=== PATIENT | female | born 1995 | race Two or more races ===

== ENCOUNTER 2016-10-22 13:38 | Emergency (ER) | payer OTHER ==
--- NOTE | 2016-10-22 14:01 | ED ---
Abdominal Pain/Female - HPI Summary HPI Summary: Patient presents to the ED 10 days post- with LLQ pain which radiates intermittently to the RUQ and briefly in the epigastric area since last evening. She notes to MOORE, decreased appetite, feeling weak, mild back pain. Denies urinary symptoms, constipation, vomiting or abnormal vaginal discharge. She endorses vaginal bleeding which but no clots or abnormal odor. VS stable. She denies sweats, chills or fever. She notes to fatigue and weakness, this is all new since 10 days ago. She takes vitamins, denies allergies or health problems. She is . Last BM this morning and does not feel that she is constipated. Denies diarrhea. and vaginal delivery was uncomplicated. VS: 98.5 temp; 114/74; 97; 16. She denies sick contacts or travel. She has taken ibuprofen without relief. She denies pain at this moment or any abnormal PO intake. - History of Current Complaint Chief Complaint: EDSyncope Stated Complaint: NEAR SYNCOPE Time Seen by Provider: 10/22/16 13:47 Hx Obtained From: Patient ?: No Onset/Duration: Sudden Onset Timing: Intermittent Episode Lasting Severity Initially: Moderate Severity Currently: Moderate Pain Intensity: 10 Pain Scale Used: 0-10 Numeric Location: Discrete At: LLQ Radiates: No Character: Sharp, Cramping Aggravating Factor(s): Nothing Alleviating Factor(s): Nothing Associated Signs and Symptoms: Positive: Other: - MOORE - Risk Factors Ectopic Risk Factor: Negative Ovarian Torsion Risk Factor: Negative Allergies/Adverse Reactions: Allergies Allergy/AdvReac Type Severity Reaction Status Date / Time No Known Allergies Allergy Verified 10/22/16 13:55 PMH/Surg Hx/FS Hx/Imm Hx Previously Healthy: Yes Sensory History: Denies: Hx Contacts or Glasses Opthamlomology History: Denies: Hx Contacts or Glasses Neurological History: Denies: Other Neuro Impairments/Disorders Psychiatric History: Reports: Hx Anxiety - Immunization History Hx Pertussis Vaccination: No Immunizations Up to Date: Unable to Obtain/Confirm Infectious Disease History: No Infectious Disease History: Denies: Traveled Outside the [place] in Last 30 Days - Social History Occupation: Unemployed Lives: With Family Alcohol Use: None Hx Substance Use: No Substance Use Type: Reports: None Hx Tobacco Use: No Smoking Status (MU): Never Smoked Tobacco Review of Systems Constitutional: Negative Eyes: Negative Positive: Palpitations Respiratory: Negative Positive: Abdominal Pain, Nausea Genitourinary: Negative Positive: no symptoms reported, see HPI, other Musculoskeletal: Negative Neurological: Negative All Other Systems Reviewed And Are Negative: Yes Physical Exam Vital Signs On Initial Exam: Initial Vitals Temp Pulse Resp BP Pulse Ox 98.5 F 97 16 114/74 99 10/22/16 13:40 10/22/16 13:40 10/22/16 13:40 10/22/16 13:40 10/22/16 13:40 - Steph Coma Scale Coma Scale Total: 15 Diagnostics - Vital Signs Vital Signs Temp Pulse Resp BP Pulse Ox 10/22/16 13:40 98.5 F 97 16 114/74 99 - Laboratory Result Diagrams: 10/22/16 14:05 10/22/16 14:05 Lab Statement: Any lab studies that have been ordered have been reviewed, and results considered in the medical decision making process. Abdominal Pain Fem Course/Dx - Course Course Of Treatment: Patient sent to xray to assess for possible constipation. Xray negative for any findings. WBC eldavated at 13.8 and UA shows 3+ leuks and WBC. Discussed case with Dr. Moore who suggested CT scan of the abd/ pelvis. CT pelvis only to show hepatosplenomegaly. Bactrim given for UTI and discharged home. She is OK with plan to follow up this week if symptoms worsen or to return to the ED. - Diagnoses Differential Diagnosis: Positive: Constipation, Ovarian Cyst, Renal Colic Provider Diagnoses: Abdominal pain Discharge - Discharge Plan Condition: Stable Disposition: HOME Prescriptions: Ondansetron ODT TAB* [Zofran 4 MG Odt TAB*] 4 mg PO Q6H PRN #12 tab.odt MDD 4 PRN Reason: Nausea Sulfamethox/Trimethoprim DS* [Bactrim DS 800/160 TAB*] 1 tab PO BID #10 tab Patient Education Materials: Abdominal Pain (ED) Referrals: No Primary Care Phys,NOPCP [Primary Care Provider] - Additional Instructions: Follow up with OBGYN Follow up with your primary care physician I have given you prescriptions for zofran (anti-nausea) and bactrim (take twice daily for 5 days) FINISH THE ENTIRE COURSE OF ANTIBIOTICS, EVEN IF YOU BEGIN TO FEEL BETTER!
[2016-10-22] MEDS ORDERED: Ondansetron INJ* 2 MG/ML VIAL IV ONE (14:02)
[2016-10-22] MEDS ORDERED: NS 0.9% 1000 ML* 1,000 ML IV ONE (14:03)
[2016-10-22 14:12] LABS: Hematocrit 34 % (35-47); Hemoglobin 11.1 g/dl (12.0-16.0); Mean Corpuscular HGB Conc 33 g/dl (31-36); Mean Corpuscular Hemoglobin 27 pg (27-31); Mean Corpuscular Volume 82 fL (80-97); Mean Platelet Volume 9 um3 (7.4-10.4); Red Blood Count 4.12 10^6/ul (4.0-5.4); Red Cell Distribution Width 14 % (10.5-15); White Blood Count 13.8 10^3/ul (3.5-10.8)
[2016-10-22 14:32] LABS: ALT 13 U/L (7-52); AST 9 U/L (13-39); Albumin 3.6 g/dL (3.2-5.2); Alkaline Phosphatase 94 U/L (34-104); Anion Gap 11 mmol/L (2-11); BUN/Creatinine Ratio 9.9 (8-20); Blood Urea Nitrogen 7 mg/dL (6-24); CO2 Carbon Dioxide 20 mmol/L (22-32); Calcium 9.4 mg/dL (8.6-10.3); Chloride 106 mmol/L (101-111); Creatine Kinase 43 U/L (10-223); EGFR African American 133.6 (>60); EGFR Non-African American 103.9 (>60); Globulin 3.6 g/dL (2-4); Glucose 93 mg/dL (70-100); Lipase < 10 U/L (11.0-82.0); Magnesium 1.7 mg/dL (1.9-2.7); Potassium 3.6 mmol/L (3.5-5.0); Sodium 137 mmol/L (133-145); Total Protein 7.2 g/dL (6.4-8.9)
[2016-10-22] MEDS ORDERED: Morphine INJ* 2 MG/ML 1 ML SYRINGE IV ONE (14:43)
--- NOTE | 2016-10-22 14:47 | RAD ---
INDICATION: Left lower quadrant pain COMPARISON: None TECHNIQUE: Erect and supine views of the abdomen are submitted. FINDINGS: Bones: There are no acute bony findings. Soft tissues: The soft tissues appear normal. The psoas margins are sharp. Bowel gas pattern: Normal Calcifications: There are no abnormal calcifications. Other: None IMPRESSION: NO ACUTE DIAGNOSTIC FINDINGS.
[2016-10-22 15:12] VITALS: BP 103/55
[2016-10-22 15:32] LABS: Urine Bacteria Absent (Absent); Urine Bilirubin Negative (Negative); Urine Glucose Negative (Negative); Urine Nitrite Negative (Negative)
[2016-10-22] MEDS ORDERED: Iohexol 300* (CONTRAST) 10 ML SDV IV ONE (15:52)
--- NOTE | 2016-10-22 16:25 | RAD ---
CLINICAL HISTORY: Abdominal pain, one week COMPARISON: None TECHNIQUE: Multiple contiguous axial CT scans were obtained of the abdomen and pelvis after the administration of intravenous contrast. Coronal and sagittal multiplanar reformations are submitted for review. Oral contrast was administered. Delayed images were obtained through the abdomen and pelvis. FINDINGS: LUNG BASES: The lung bases are clear. LIVER: The liver is homogeneously enlarged measuring up to 23 cm in long axis. BILE DUCTS: There is no intrahepatic or extrahepatic biliary dilatation. GALLBLADDER: The gallbladder is normal, without pericholecystic inflammatory change. PANCREAS: The pancreas is normal, without mass or ductal dilatation. SPLEEN: The spleen is homogeneously enlarged measuring approximately 15 cm in dimension. UPPER GI TRACT: Evaluation of the gastrointestinal tract is limited by incomplete gastric distention. The upper GI tract is unremarkable. SMALL BOWEL AND MESENTERY: The small bowel is normal in contour, course, and caliber. There is no obstruction or dilatation. COLON: The colon is normal in contour, course, caliber. There is no pericolonic inflammatory change. There is a tubular, vermiform, hollow viscus that is blind ending, and originates from the cecum, consistent with a normal appendix. There is no periappendiceal inflammatory change. ADRENALS: Normal bilaterally. KIDNEYS: The kidneys are normal in shape, size, contour, and axis. There is no hydronephrosis or nephrolithiasis. BLADDER: The bladder is smooth in contour. PELVIC ORGANS: The uterus is diffusely enlarged and heterogeneously enhancing consistent with the recent state. AORTA: The aorta is normal. IVC: Unremarkable LYMPH NODES: There is no lymphadenopathy by size criteria. ABDOMINAL WALL: There is no evidence for abdominal wall hernia. BONES AND SOFT TISSUES: Unremarkable OTHER: None IMPRESSION: HEPATOSPLENOMEGALY. APPEARANCE TO THE UTERUS.
[2016-10-22] MEDS ORDERED: Ibuprofen TAB* 600 MG PO ONE (16:51)
[2016-10-22] MEDS ORDERED: Ibuprofen TAB* 600 MG ONE (16:52)
== END 2016-10-22 17:04 | disposition home or self-care (01) ==
LOC: ED 13:38
DX: R10.32 Left lower quadrant pain (principal); R11.0 Nausea; R00.2 Palpitations
CPT/HCPCS: 36415; 74020; 74177; 80053; 81003; 81015; 82550; 83605; 83690; 83735; 84702; 85025; 86140; 87077; 87086; 87186; 99283; A9270-GY; J2270; J2405; Q9967

== ENCOUNTER → 2017-01-11 12:38 | Emergency (ER) | payer OTHER ==
[2017-01-11 12:43] VITALS: BP 132/80
--- NOTE | 2017-01-11 15:34 | ED ---
Annie Bird Gabriel, scribed for Baltazar Moore MD on 01/11/17 at 1256 . Psychiatric Complaint - HPI Summary HPI Summary: This patient is a 21 year old F presenting to [facility] accompanied by family with a chief complaint of depression since she gave . She states she has been on antidepressants since two weeks after giving . Patient reports loss of sleep. Patient denies SI or UT. - History Of Current Complaint Chief Complaint: EDMentalHealth Time Seen by Provider: 01/11/17 12:52 Hx Obtained From: Patient Onset/Duration: Still Present Character: Depressed Alleviating Factor(s): Nothing Associated Signs And Symptoms: Positive: Negative - SI and HI - Allergies/Home Medications Allergies/Adverse Reactions: Allergies Allergy/AdvReac Type Severity Reaction Status Date / Time No Known Allergies Allergy Verified 10/22/16 13:55 Home Medications: Home Medications Citalopram TAB* [CeleXA TAB*] 20 mg PO DAILY 01/11/17 [History Confirmed ] PMH/Surg Hx/FS Hx/Imm Hx Previously Healthy: No Endocrine/Hematology History: Denies: Hx Diabetes Cardiovascular History: Denies: Hx Hypertension History: Denies: Hx Renal Disease Sensory History: Denies: Hx Contacts or Glasses Opthamlomology History: Denies: Hx Contacts or Glasses Neurological History: Denies: Other Neuro Impairments/Disorders Psychiatric History: Reports: Hx Anxiety Infectious Disease History: No Infectious Disease History: Denies: Traveled Outside the [place] in Last 30 Days - Family History Known Family History: Positive: Hypertension, Diabetes, Other - cancer - Social History Alcohol Use: None Hx Substance Use: No Substance Use Type: Reports: None Hx Tobacco Use: No Smoking Status (MU): Never Smoked Tobacco Review of Systems Neurological: Negative - SI and HI Positive: Depressed All Other Systems Reviewed And Are Negative: Yes Physical Exam - Summary Physical Exam Summary: Appearance: Well-appearing Eyes: Normal, Conjunctiva clear ENT: Normal ENT inspection. Dental: Normal Neck: Supple, non-tender, no lymphadenopathy Lungs: Lungs clear, normal breath sounds, no respiratory distress, no accessory muscle use. Heart: RRR, no murmur, pulses normal. Abdomen: Nontender, soft. Musculoskeletal: Normal Neurological: Normal Psychiatric: Normal Skin: Normal Triage Information Reviewed: Yes Vital Signs On Initial Exam: Initial Vitals Temp Pulse Resp BP Pulse Ox 97.9 F 93 20 132/80 98 01/11/17 12:40 01/11/17 12:40 01/11/17 12:40 01/11/17 12:40 01/11/17 12:40 Vital Signs Reviewed: Yes Diagnostics - Vital Signs Vital Signs Temp Pulse Resp BP Pulse Ox 01/11/17 12:40 97.9 F 93 20 132/80 98 - Laboratory Lab Statement: Any lab studies that have been ordered have been reviewed, and results considered in the medical decision making process. Course/Dx - Course Course Of Treatment: Ms. Farmer presented C/O depression since she gave several months ago. She is not suicidal but overwhelmed by the circumstances of her life. She was seen by the [facility] who felt that she was safe for D/C and provided both mental health F/U and advocacy center contacts. - Differential Dx/Clinical Impression Provider Diagnosis: Post depression Discharge - Discharge Plan Condition: Stable Disposition: HOME Referrals: No Primary Care Phys,NOPCP [Primary Care Provider] - The documentation as recorded by the Annie demarco Gabriel accurately reflects the service I personally performed and the decisions made by me, Baltazar Moore MD.
== END | disposition home or self-care (01) ==
LOC: ED 12:38
DX: O90.9 Complication of the puerperium, unspecified (principal)
CPT/HCPCS: 99283

== ENCOUNTER 2017-04-27 12:11 | Emergency (ER) | payer OTHER ==
[2017-04-27 12:33] VITALS: BP 118/67
--- NOTE | 2017-04-27 12:47 | UC ---
HPI Febrile Illness - HPI Summary HPI Summary: Pt presents with sinus pain/pressure/congestion for 5 days. Recently has developed a dry cough. She has been taking an OTC cold/flu medication with no relief. Has felt feverish, but has not taken her temperature. Denies chills, sore throat, SOB, chest pain, abdominal pain. - History of Current Complaint Hx Obtained From: Patient Hx Last Menstrual Period: IUD Initial Severity: Moderate Current Severity: Moderate Pain Intensity: 6 Pain Scale Used: 0-10 Numeric <Lucho Smith - Last Filed: 04/27/17 12:59> <Silvia Kent - Last Filed: 04/29/17 18:51> - History of Current Complaint Chief Complaint: UCRespiratory Time Seen by Provider: 04/27/17 12:47 - Allergy/Home Medications Allergies/Adverse Reactions: Allergies Allergy/AdvReac Type Severity Reaction Status Date / Time No Known Allergies Allergy Verified 10/22/16 13:55 Home Medications: Home Medications D-Methorphan/PE/Acetaminophen [Daytime Cold Multi-Symp Gelcap] 04/27/17 [ History] PMH/Surg Hx/FS Hx/Imm Hx Previously Healthy: Yes - Surgical History Surgical History: None - Family History Known Family History: Positive: Hypertension, Diabetes, Other - cancer - Social History Occupation: Employed Full-time Lives: With Family Alcohol Use: None Substance Use Type: None Smoking Status (MU): Never Smoked Tobacco <Lucho Smith - Last Filed: 04/27/17 12:59> Review of Systems Constitutional: Fever Skin: Negative Eyes: Negative ENT: Nasal Discharge, Sinus Congestion, Sinus Pain/Tenderness Respiratory: Cough Cardiovascular: Negative Gastrointestinal: Negative Musculoskeletal: Negative Neurological: Negative Psychological: Negative All Other Systems Reviewed And Are Negative: Yes <Lucho Smith - Last Filed: 04/27/17 12:59> Physical Exam - Summary Physical Exam Summary: GENERAL: NAD. WDWN HEENT: NC/AT. Conjunctiva clear without inflammation or discharge. TMs intact , no bulging, erythema, or edema. Nasal mucosa mildly swollen and erythematous with yellow/clear discharge. No polyps noted. TTP maxillary and frontal sinus. Posterior oropharynx without exudates, erythema, or tonsillar enlargement. Uvula midline. NECK: Supple without lymphadenopathy CHEST: CTAB. No r/r/w. No accessory muscle use. Breathing comfortably and in no distress. CV: RRR. Without m/r/g. Pulses intact. SKIN: No rash or erythema noted. NEURO: Alert. CN II-XII grossly intact. PSYCH: Age appropriate behavior. Triage Information Reviewed: Yes Vital Signs: Initial Vital Signs Temp 97.3 F 04/27/17 12:28 Pulse 90 04/27/17 12:28 Resp 18 04/27/17 12:28 BP 118/67 04/27/17 12:28 Pulse Ox 100 04/27/17 12:28 <Lucho Smith - Last Filed: 04/27/17 12:59> Vital Signs: Initial Vital Signs Temp 97.3 F 04/27/17 12:28 Pulse 90 04/27/17 12:28 Resp 18 04/27/17 12:28 BP 118/67 04/27/17 12:28 Pulse Ox 100 04/27/17 12:28 <Silvia Kent - Last Filed: 04/29/17 18:51> Course/Dx - Course Course Of Treatment: Sinusitis. Pt is requesting antibiotic therapy after discussion that her symptoms could likely be viral. - Diagnoses Clinic Provider Diagnoses: Sinusitis <Lucho Smith - Last Filed: 04/27/17 12:59> Discharge <Lucho Smith - Last Filed: 04/27/17 12:59> <Silvia Kent - Last Filed: 04/29/17 18:51> - Discharge Plan Condition: Stable Disposition: HOME Prescriptions: Amoxicillin PO (*) [Amoxicillin 500 MG CAP*] 500 mg PO Q12H #14 cap Patient Education Materials: Sinusitis (ED) Forms: *Work Release Referrals: No Primary Care Phys,NOPCP [Primary Care Provider] - Additional Instructions: If you develop a fever, shortness of breath, chest pain, new or worsening symptoms - please call your PCP or go to the ED. Attestation Statement User Type: Provider - I was available for consult. This patient was seen by the KEVIN. The patient was not presented to, seen by, or examined by me. Antonia <Silvia Kent - Last Filed: 04/29/17 18:51>
== END 2017-04-27 13:05 | disposition home or self-care (01) ==
LOC: UCEAST 12:11
DX: J32.9 Chronic sinusitis, unspecified (principal)
CPT/HCPCS: 99212; G0463

== ENCOUNTER 2017-05-12 12:57 | Emergency (ER) | payer OTHER ==
[2017-05-12] MEDS ORDERED: Ondansetron ODT TAB* 4 MG PO ONE ×2 (13:35→14:57)
--- NOTE | 2017-05-12 13:42 | UC ---
UC General HPI - HPI Summary HPI Summary: 21 yo BF c/o N/V/D associated with crampy abd pain associated with f/c, vomited and had diarrhea about 5x since last night. Ate some crackers today but that about it . +sick contact- boyfriend was dx'd with gastroenteritis last night after going to ER. Denies URI sx, cough - History of Current Complaint Chief Complaint: UCGI Stated Complaint: NAUGSEA,VOMITING Time Seen by Provider: 05/12/17 12:58 Hx Obtained From: Patient Hx Last Menstrual Period: states no period - has IUD Onset/Duration: Sudden Onset Onset Severity: Moderate Current Severity: Moderate Pain Intensity: 0 - Allergy/Home Medications Allergies/Adverse Reactions: Allergies Allergy/AdvReac Type Severity Reaction Status Date / Time No Known Allergies Allergy Verified 10/22/16 13:55 Home Medications: Home Medications NK [No Home Medications Reported] 05/12/17 [History Confirmed 05/12/17] PMH/Surg Hx/FS Hx/Imm Hx - Additional Past Medical History Additional PMH: none Previously Healthy: Yes - Surgical History Surgical History: None - Family History Known Family History: Positive: Hypertension, Diabetes, Other - cancer - Social History Alcohol Use: None Substance Use Type: None Smoking Status (MU): Never Smoked Tobacco Review of Systems Constitutional: Fever, Chills Skin: Negative Eyes: Negative ENT: Negative Respiratory: Negative Cardiovascular: Negative Gastrointestinal: Abdominal Pain, Vomiting, Diarrhea, Nausea Genitourinary: Negative Motor: Negative Neurovascular: Negative Musculoskeletal: Negative Neurological: Negative Psychological: Negative All Other Systems Reviewed And Are Negative: Yes Physical Exam Triage Information Reviewed: Yes Vital Signs: Initial Vital Signs Temp 37.2 C 05/12/17 13:10 Pulse 108 05/12/17 13:10 Resp 20 05/12/17 13:10 BP 127/74 05/12/17 13:10 Pulse Ox 99 05/12/17 13:10 Eye Exam: Normal ENT Exam: Normal Dental Exam: Normal Neck exam: Normal Neck: Positive: 1 Respiratory Exam: Normal Cardiovascular Exam: Normal Abdomen Description: Positive: Soft, Other: - mild periumbilical tenderness Musculoskeletal Exam: Normal Neurological Exam: Normal Psychological Exam: Normal Skin Exam: Normal Course/Dx - Differential Dx - Multi-Symptom Provider Diagnoses: gastroenteritis Discharge - Discharge Plan Condition: Stable Disposition: HOME Patient Education Materials: Gastroenteritis (ED) Referrals: No Primary Care Phys,NOPCP [Primary Care Provider] -
[2017-05-12 15:53] VITALS: BP 108/56
== END 2017-05-12 15:45 | disposition home or self-care (01) ==
LOC: UCEAST 12:57
DX: K52.9 Noninfective gastroenteritis and colitis, unspecified (principal)
CPT/HCPCS: 87502; 87651; 99212; A9270-GY; G0463

== ENCOUNTER 2017-08-11 07:54 | Emergency (ER) | payer OTHER ==
[2017-08-11 08:06] VITALS: BP 111/71
--- NOTE | 2017-08-11 09:01 | UC ---
Iman Bird Tenzin, scribed for Silvia Kent MD on 08/11/17 at 0837 . Respiratory Complaint HPI - HPI Summary HPI Summary: Pt is a 21 years old female presenting to the complaining of sinus pressure and congestion with pain radiating to her head and ears since three days ago. Pt rates the pain at 5/10 in severity and describes it as aching, sharp and tight. She notes that her last sinus infection was couple of months ago. Pt is also complaining of fever, nausea and congested ear and nose. Pt denies rashes and chills. Pt reports sx improve with shower. No OTC meds taken.P She reports that she has not taken any medication for her pain. Pt has 10 month old at home - not . LNMP was 1 months ago. She does not smoke or drink. Pt's medications reviewed this visit - History of Current Complaint Chief Complaint: UCGeneralIllness Stated Complaint: RESP ISSUE NECK STIFF Hx Obtained From: Patient Hx Last Menstrual Period: iud Onset/Duration: Lasting Days - three days ago. Severity Currently: Mild Pain Intensity: 6 Pain Scale Used: 0-10 Numeric Associated Signs And Symptoms: Positive: Fever, Nasal Congestion. Negative: Chills - Allergies/Home Medications Allergies/Adverse Reactions: Allergies Allergy/AdvReac Type Severity Reaction Status Date / Time No Known Allergies Allergy Verified 08/11/17 08:06 PMH/Surg Hx/FS Hx/Imm Hx - Additional Past Medical History Additional PMH: NEGATIVE: NV, CVA. Previously Healthy: Yes - Surgical History Surgical History: None - Family History Known Family History: Positive: Hypertension, Diabetes, Other - cancer - Social History Occupation: Works From/At Home Lives: With Family Alcohol Use: None Substance Use Type: None Smoking Status (MU): Never Smoked Tobacco Review of Systems Constitutional: Fever Skin: Negative Eyes: Negative ENT: Sinus Congestion - congested ear and nose. Respiratory: Negative Cardiovascular: Negative Gastrointestinal: Nausea Genitourinary: Negative Motor: Negative Neurovascular: Negative Musculoskeletal: Negative Neurological: Headache - frontal Psychological: Negative All Other Systems Reviewed And Are Negative: Yes Physical Exam - Summary Physical Exam Summary: Vital Signs Reviewed: Yes A+Ox3, no distress, congested Eyes: Conjunctiva Clear, SANDRA ENT: Hearing grossly normal TM x2 clear mild fluid no erythema turbinates inflammed and boggy + thick PND uvula midline, no exudate + TTP max sinus and frontal L>R neck: supple no LA Respiratory: Positive: No respiratory distress, No accessory muscle use CtA throughout no w/r + BS throughotu Cardiovascular: skin color reflect adequate perfusion Musculoskeletal Exam: AMBRIZ x 4 without difficulty Neurological: Positive: Alert, ambulatory without difficulty Psychological: Positive: Normal Response To Family Skin: Positive: no rash, no ecchymosis Triage Information Reviewed: Yes Vital Signs: Initial Vital Signs Temp 98.4 F 08/11/17 08:03 Pulse 100 08/11/17 08:03 Resp 20 08/11/17 08:03 BP 111/71 08/11/17 08:03 Pulse Ox 99 08/11/17 08:03 Diagnostic Evaluation - Laboratory O2 Sat by Pulse Oximetry: 99 Respiratory Course/Dx - Course Course Of Treatment: progressive sinus congested, exam c/w sinusitis. pt non toxic with stable VSS. Will Rx flonase, decongestant, abx. secretion precaution. motrin/apap - Differential Dx/Diagnosis Provider Diagnoses: acute sinusitis Discharge - Sign-Out/Discharge Documenting (check all that apply): Discharge/Admit/Transfer - Discharge Plan Condition: Stable Disposition: HOME Prescriptions: Amoxicillin PO (*) [Amoxicillin 875 MG (*)] 875 mg PO BID #14 tab Fluticasone NASAL SPRAY 50MCG* [Flonase NASAL SPRAY 50MCG*] 2 spray BOTH NARES DAILY #1 btl Ibuprofen TAB* [Motrin TAB* 600 MG] 600 mg PO Q6H PRN #30 tab PRN Reason: fever, pain Patient Education Materials: Rhinosinusitis (ED) Referrals: [facility] [place] [facility] REFERRAL [Outside] No Primary Care Phys,NOPCP [Primary Care Provider] - Additional Instructions: - Stay well hydrated. Drink plenty of non-alcoholic, non-caffinated beverages. - Alternate ibuprofen (Advil, Motrin) 600mg and Tylenol every 3 hours for pain or fever. Take with food. Do NOT take for more than 4-5 days. - These infections are spread by secretions - do NOT share eating or drinking utensils - clean items you share with other people such as cell phones, computer mouse, TV remote, computer tablets,etc. Once you have been antibiotics for 2 days, change your toothbrush and your pillowcase. - get plenty of restful sleep - Take antibiotics as prescribed until gone if you are not improved after the next 48 hours - use nasal spray as prescribed - It is recommended you take a decongestant such as Zyrtec-D, Abby-D, Claritin-D - you can purchase this at the pharmacy counter without a prescription - If you develop increased pain, fever, rash, uncontrolled headache or other concerns it is recommended you go directly to the emergency department for further evaluation - Billing Disposition and Condition Condition: STABLE Disposition: Home The documentation as recorded by the Iman demarco Tenzin accurately reflects the service I personally performed and the decisions made by me, Silvia Kent MD.
== END 2017-08-11 09:15 | disposition home or self-care (01) ==
LOC: UCEAST 07:54
DX: J01.90 Acute sinusitis, unspecified (principal); R11.0 Nausea; R51 Headache
CPT/HCPCS: 99212; G0463

== ENCOUNTER 2017-09-17 08:00 | Emergency (ER) | payer SELFPAY ==
[2017-09-17 08:17] VITALS: BP 116/68
--- NOTE | 2017-09-17 08:25 | UC ---
Lower Extremity/Ankle HPI - HPI Summary HPI Summary: eDja Bird, scribed for attending Sherly Black MD. Pt is a 21 y/o F who presents to [facility] c/o R ankle pain and swelling. Pt reports that she was playing laser tag and while running she rolled the ankle and fell. Associated pain is moderate, ranked 7/10 on triage. Sx aggravated by ambulation, alleviated by nothing. Reports that she cannot bear full weight on the ankle and is able to walk a few steps, then needs to rest. Confirms she already has a boot from a prior injury. - History of Current Complaint Chief Complaint: UCLowerExtremity Stated Complaint: ANKLE INJURY Time Seen by Provider: 09/17/17 08:17 Hx Obtained From: Patient Hx Last Menstrual Period: on control Onset/Duration: Still Present Severity Currently: Moderate Pain Intensity: 7 Pain Scale Used: 0-10 Numeric Aggravating Factor(s): Ambulation Alleviating Factor(s): Nothing Able to Bear Weight: No - Cannot bear full weight - Allergies/Home Medications Allergies/Adverse Reactions: Allergies Allergy/AdvReac Type Severity Reaction Status Date / Time No Known Allergies Allergy Verified 09/17/17 08:17 PMH/Surg Hx/FS Hx/Imm Hx Respiratory History: Asthma Psychological History: Anxiety - Surgical History Surgical History: None - Family History Known Family History: Positive: Hypertension, Diabetes, Other - cancer - Social History Alcohol Use: None Substance Use Type: None Smoking Status (MU): Never Smoked Tobacco Review of Systems Constitutional: Negative Skin: Negative Eyes: Negative ENT: Negative Respiratory: Negative Cardiovascular: Negative Gastrointestinal: Negative Genitourinary: Negative Motor: Negative Neurovascular: Negative Musculoskeletal: Arthralgia - R ankle pain, Other: - R ankle swelling Neurological: Negative Psychological: Negative All Other Systems Reviewed And Are Negative: Yes Physical Exam - Summary Physical Exam Summary: Appearance: Well-appearing, Well-nourished Skin: Warm Eyes: Normal ENT: Normal Neck: Supple, nontender Respiratory: Clear to auscultation Cardiovascular: Regular rate, regular rhythm. Normal S1, S2. Musculoskeletal: Tenderness to palpation over the lateral and anterior sides of the right ankle joint without bony tenderness, NVI Neurological: Normal, A&Ox3 Psychiatric: Normal General: No acute distress Triage Information Reviewed: Yes Vital Signs: Initial Vital Signs Temp 98.6 F 09/17/17 08:12 Pulse 80 09/17/17 08:12 Resp 18 09/17/17 08:12 BP 116/68 09/17/17 08:12 Pulse Ox 100 09/17/17 08:12 Vital Signs Reviewed: Yes Diagnostics - Radiology Ankle XR Xray Interpretation: No Acute Changes - Normal articular alignment. No cortical disruption or suspicious trabecular irregularity to suggest fracture. No suggestion of talocrural joint effusion. Small os trigonum accessory ossicle. Mild nonfocal soft tissue swelling. Physician reviewed this radiology report. Radiology Interpretation Completed By: Radiologist Lower Extremity Course/Dx - Course Course Of Treatment: No fx on XR of right ankle, RICE, CAM boot for difficulty with ambulation - Differential Dx/Diagnosis Provider Diagnoses: Grade 3 right ankle sprain Discharge - Sign-Out/Discharge Documenting (check all that apply): Patient Departure - Discharge - Discharge Plan Condition: Stable Disposition: HOME Patient Education Materials: Ankle Sprain (ED) Referrals: No Primary Care Phys,NOPCP [Primary Care Provider] - - Billing Disposition and Condition Condition: STABLE Disposition: Home
--- NOTE | 2017-09-17 08:51 | RAD ---
Indication: RIGHT ankle pain following twisting/inversion injury. Comparison: No relevant prior exams available on the [facility] for comparison. Technique: AP, mortise, and lateral views RIGHT ankle. REPORT AND IMPRESSION: #. Normal articular alignment. No cortical disruption or suspicious trabecular irregularity to suggest fracture. No suggestion of talocrural joint effusion. Small os trigonum accessory ossicle. Mild nonfocal soft tissue swelling.
== END 2017-09-17 09:12 | disposition home or self-care (01) ==
LOC: UCEAST 08:00
DX: S93.401A Sprain of unspecified ligament of right ankle, initial encounter (principal); M25.571 Pain in right ankle and joints of right foot; J45.909 Unspecified asthma, uncomplicated; X50.1XXA Overexertion from prolonged static or awkward postures, initial encounter; Y93.89 Activity, other specified; Y92.9 Unspecified place or not applicable
CPT/HCPCS: 99211; G0463

== ENCOUNTER 2017-12-05 11:11 | Emergency (ER) | payer MEDICAID, OTHER ==
[2017-12-05 11:27] VITALS: BP 125/76
--- NOTE | 2017-12-05 11:46 | UC ---
Ear Complaint HPI - HPI Summary HPI Summary: 21 y/o female presents to the urgent care c/o left ear pain for the past 2 days. Pt reports her symptoms started w/ common cold about 1 week. she has nasal congestion w/ yellowish nasal discharge, MOORE, productive cough and sore throat. Ear pain is severe today 10/10 associated w/ mild dizziness and decrease hearing. She noticed some ear discharge and swelling this morning. Pt denies fever, tinnitus, SOB, wheezing, chest pain, abdominal pain, N/V/D/. she took Ibuprofen 600mg PO about 2 hrs ago to alleviate symptoms. - History of Current Complaint Chief Complaint: UCEar Stated Complaint: EAR ACHE Time Seen by Provider: 12/05/17 11:37 Hx Obtained From: Patient Hx Last Menstrual Period: on control ?: No Onset/Duration: Gradual Onset, Lasting Weeks - 1 week, Still Present, Worse Since - 2 days ago Severity Initially: Mild Severity Currently: Severe Pain Intensity: 10 - ear pain Pain Scale Used: 0-10 Numeric Aggravating Factors: Other - touch ear Alleviating Factors: OTC Meds - Ibuprofen 600mg PO Associated Signs/Symptoms: Positive: Hearing Loss, URI Symptoms - Allergies/Home Medications Allergies/Adverse Reactions: Allergies Allergy/AdvReac Type Severity Reaction Status Date / Time No Known Allergies Allergy Verified 12/05/17 11:27 PMH/Surg Hx/FS Hx/Imm Hx Previously Healthy: Yes Respiratory History: Asthma - Surgical History Surgical History: None - Family History Known Family History: Positive: Hypertension, Diabetes Family History: cancer - Social History Occupation: Unemployed Lives: With Family Alcohol Use: None Substance Use Type: None Smoking Status (MU): Never Smoked Tobacco - Immunization History Most Recent Tetanus Shot: UTD Review of Systems Constitutional: Negative Skin: Negative Eyes: Negative ENT: Sore Throat, Ear Ache - left ear pain, Nasal Discharge, Sinus Congestion, Sinus Pain/Tenderness, Other - mild dizziness at times Respiratory: Negative Cardiovascular: Negative Gastrointestinal: Negative Genitourinary: Negative Motor: Negative Neurovascular: Negative Musculoskeletal: Negative Neurological: Headache Psychological: Negative Is Patient Immunocompromised?: No All Other Systems Reviewed And Are Negative: Yes Physical Exam - Summary Physical Exam Summary: Vital signs: reviewed General: well developed, well nourished obese female sitting in the examining table w/o any apparent distress Skin: [place], warm and dry, no evidence of atopic dermatitis, psoriasis, seborrhea. HEENT: -Head: atraumatic, non tender; no scalp dermatitis. -Eyes: sclera and conjunctiva clear, PERRLA, EOMI -Ears: no pre- or postauricular lymphadenopathy or erythema; LF external ear canal with erythema and yellowish purulent discharge, pinna tenderness on palpation, LF TM injected w/ erythema, RT external ear canal clear and RT TM WNL. . -Nose/Face: erythematous and edematous nasal mucosa with clear rhinorrhea, no frontal or maxillary sinus tender to palpation. -Mouth/Throat: Mucous membrane moist, posterior pharynx left annie ew/ erythema and midl exudate and B/l tonsilar enlargement. Neck: supple, FROM, nontender, no lymphadenopathy, no meningismus. Chest: Clear to auscultation, normal breath sounds Abd: soft, Bowel sounds active, Nontender. Back: no spinal or CVAT Neuro: A&O x4, GCS 15, no focal neuro deficits, normal behavior for age. Triage Information Reviewed: Yes Vital Signs: Initial Vital Signs Temp 99.1 F 12/05/17 11:22 Pulse 85 12/05/17 11:22 Resp 20 12/05/17 11:22 BP 125/76 12/05/17 11:22 Pulse Ox 100 12/05/17 11:22 Ear Complaint Course/Dx - Course Course Of Treatment: 21 y/o female presents to the urgent care c/o left ear pain for the past 2 days. Pt reports her symptoms started w/ common cold about 1 week. she has nasal congestion w/ yellowish nasal discharge, MOORE, productive cough and sore throat. Ear pain is severe today 12/07 associated w/ mild dizziness and decrease hearing. She noticed some ear discharge and swelling this morning. Pt denies fever, tinnitus, SOB, wheezing, chest pain, abdominal pain, N/V/D/. she took Ibuprofen 600mg PO about 2 hrs ago to alleviate symptoms. Hx obtained. Pt w/ Left acute otitis Media and externa and preauricular and postauricular lymphadenopathy on examination. Pt. Pt Rx Amoxicillin PO and Ciprodex otic drops. Also Rx ibuprofen PO OTC for pain. Strongly advised If symptoms worsen and she develops fever adn severe otalgia despite antibiotics to go immediately to the ER for further management. or f/u w / ENT Dr Almaraz for further management. Pt understood and agreed with D/C instructions. - Differential Dx/Diagnosis Differential Diagnosis/HQI/PQRI: Cerumen Impaction, Otitis Externa, Otitis Media , Perforated TM, Pharyngitis, URI Provider Diagnoses: 1- Left acute otitis Media and externa. 2- otalgia Discharge - Sign-Out/Discharge Documenting (check all that apply): Patient Departure - D/c home All imaging exams completed and their final reports reviewed: No Studies - Discharge Plan Condition: Stable Disposition: HOME Prescriptions: Amoxicillin PO (*) [Amoxicillin 875 MG (*)] 875 mg PO BID #20 tab Ciproflox/Dexameth OTIC.SUSP* [Ciprodex OTIC.SUSP*] 4 drop .SEE ORDER BID #1 btl Ibuprofen TAB* [Motrin TAB* 800 MG] 800 mg PO Q6H PRN #30 tab PRN Reason: otalgia Patient Education Materials: Ear Infection (ED) Referrals: [facility] [[facility]] - 2 Days Albino Almaraz MD [Medical Doctor] - 3 Days Additional Instructions: 1- Please take the full course of the antibiotic to avoid resistance. 2-Please take ibuprofen PO q6-8hrs prn as instructed after meals to alleviate pain and swelling. Increase fluid intake, eat well, rest and avoid strenuous exercise 3-If symptoms do not improve or worsen please return to the urgent care or f/u with your PCP 2 days for further evaluation and treatment. 4- If severe ear pain and fever develops despite medications please go immediately to the ER or f/u w/ ENT Dr Almaraz for further evaluation and treatment. - Billing Disposition and Condition Condition: STABLE Disposition: Home
== END 2017-12-05 12:25 | disposition home or self-care (01) ==
LOC: UCEAST 11:11
DX: H66.92 Otitis media, unspecified, left ear (principal); H60.92 Unspecified otitis externa, left ear; J02.9 Acute pharyngitis, unspecified; R09.81 Nasal congestion; R42 Dizziness and giddiness; R51 Headache
CPT/HCPCS: 99212; G0463

== ENCOUNTER 2017-12-06 21:20 | Emergency (ER) | payer OTHER ==
[2017-12-06 21:28] VITALS: BP 142/81
--- NOTE | 2017-12-06 21:32 | UC ---
Ear Complaint HPI - HPI Summary HPI Summary: 21 yo female presents with worsening left ear pain now going into her jaw and neck. She tells me that she was seen yesterday and dx'd with otitis externa with strong advisement that if her symptoms worsened to go to the ED. She was rx 'd amoxicillin and ciprodex ear drops - which she took two doses yesterday and two doses today, but her symptoms have worsened. She says it is difficult to open her jaw due to pain. Has been taking ibuprofen, but is not helping. Denies fever, chills. - History of Current Complaint Chief Complaint: UCEar Stated Complaint: SORE THROAT, AND HEADACHE Time Seen by Provider: 12/06/17 21:32 Hx Obtained From: Patient Hx Last Menstrual Period: MIRENA IUD Onset/Duration: Gradual Onset Severity Initially: Severe Severity Currently: Severe Pain Intensity: 10 Pain Scale Used: 0-10 Numeric - Allergies/Home Medications Allergies/Adverse Reactions: Allergies Allergy/AdvReac Type Severity Reaction Status Date / Time No Known Allergies Allergy Verified 12/06/17 21:28 Home Medications: Home Medications Levonorgestrel (Iud) [Mirena IUD] 12/06/17 [History] PMH/Surg Hx/FS Hx/Imm Hx - Additional Past Medical History Additional PMH: None - Surgical History Surgical History: None - Family History Known Family History: Positive: Hypertension, Diabetes, Other - cancer Family History: cancer - Social History Occupation: Employed Full-time Lives: With Family Alcohol Use: None Substance Use Type: None Smoking Status (MU): Never Smoked Tobacco - Immunization History Most Recent Tetanus Shot: UTD Review of Systems Constitutional: Negative Skin: Negative Eyes: Negative ENT: Ear Ache Respiratory: Negative Cardiovascular: Negative Gastrointestinal: Negative Neurovascular: Negative Musculoskeletal: Negative Neurological: Headache Psychological: Negative All Other Systems Reviewed And Are Negative: Yes Physical Exam - Summary Physical Exam Summary: GENERAL: NAD. Mild pain distress. Tearful SKIN: No rashes, sores, lesions, or open wounds. HEENT: Head: AT/NC Eyes: EOM intact. Conjunctiva clear without inflammation or discharge. Ears: Hearing grossly normal. RIGHT TM: WNL. TM intact. LEFT ear: Moderate canal edema and white purulent matter. TM not visualized due to canal edema and degree of pain. 5-10mm post-auricular LAD TTP. Tenderness at mastoid process down left mandible and into left neck. No post auricular erythema or ecchymosis. Nose: Nasal mucosa pink and moist. NTTP maxillary and frontal sinus. Throat: Posterior oropharynx without exudates, erythema, or tonsillar enlargement. Uvula midline. NECK: Supple. TTP left neck. CHEST: CTAB. No r/r/w. No accessory muscle use. Breathing comfortably and in no distress. CV: RRR. Without m/r/g. Pulses intact. NEURO: Alert. PSYCH: Age appropriate behavior. Triage Information Reviewed: Yes Vital Signs: Initial Vital Signs Temp 98.3 F 12/06/17 21:25 Pulse 89 12/06/17 21:25 Resp 16 12/06/17 21:25 BP 142/81 12/06/17 21:25 Pulse Ox 100 12/06/17 21:25 Vital Signs Reviewed: Yes Ear Complaint Course/Dx - Course Course Of Treatment: Her pain appears out of proportion to her exam. She says she has had "Swimmer's ear" in the past with drainage, but has never had pain like this. I am concerned for an early mastoiditis. I discussed with the pt the option of placing her on an additional po anbx with a follow up tomorrow afternoon here at or to go to the ED tonight or tomorrow if pain persists. She elected to go to the ED this evening. - Differential Dx/Diagnosis Provider Diagnoses: Left otitis externa Discharge - Sign-Out/Discharge Documenting (check all that apply): Patient Departure All imaging exams completed and their final reports reviewed: No Studies - Discharge Plan Condition: Stable Disposition: HOME-RECOMMEND TO ED Referrals: No Primary Care Phys,NOPCP [Primary Care Provider] - Additional Instructions: Please go to the ER for your increasing pain and swelling despite antibiotics and outpatient therapy - Billing Disposition and Condition Condition: STABLE Disposition: Home-Recommend to ED
== END 2017-12-06 21:55 | disposition home health service (06) ==
LOC: UCEAST 21:20
DX: H60.92 Unspecified otitis externa, left ear (principal)
CPT/HCPCS: 99212; G0463

== ENCOUNTER 2017-12-06 22:10 | Emergency (ER) | payer OTHER ==
[2017-12-06 23:55] LABS: ABS Basophils 0 10^3/ul (0-0.2); ABS Eosinophils 0.2 10^3/ul (0-0.6); ABS Lymphocytes 2.7 10^3/ul (1.0-4.8); ABS Monocytes 0.6 10^3/ul (0-0.8); ABS Neutrophils 4.5 10^3/ul (1.5-7.7); ABS Nucleated RBC 0 10^3/ul; Eosinophil % 2.4 % (0-6); Hematocrit 38 % (35-47); Hemoglobin 12.9 g/dl (12.0-16.0); Lymphocyte % 33.6 % (25-47); Mean Corpuscular HGB Conc 34 g/dl (31-36); Mean Corpuscular Hemoglobin 28 pg (27-31); Mean Corpuscular Volume 84 fL (80-97); Mean Platelet Volume 9.2 um3 (7.4-10.4); Nucleated Red Blood Cells % 0.2; Platelet Count 221 10^3/ul (150-450); Red Blood Count 4.54 10^6/ul (4.00-5.40); Red Cell Distribution Width 14 % (10.5-15)
[2017-12-07 00:12] LABS: EGFR Non-African American 96.6 (>60)
[2017-12-07] MEDS ORDERED: Ketorolac INJ* 30 MG/ML 1 ML VIAL IV PUSH ONE (01:36)
--- NOTE | 2017-12-07 02:46 | ED ---
Throat Pain/Nasal Congestion - HPI Summary HPI Summary: 21-year-old female presents with left ear pain for the past couple days. She states she started antibiotic days ago and has taken 2 doses. She states that she has had any decreased hearing. States that she's been having increased pain over the posterior aspect ear that is new. She denies any history of ear infections. She admits to drainage of her ear. No fevers. No sinus congestion. she states the pain radiates to her jaw and it is difficulty to open her jaw due to the pain. No medical conditions. - History of Current Complaint Chief Complaint: EDEarPain Time Seen by Provider: 12/07/17 00:46 - Allergies/Home Medications Allergies/Adverse Reactions: Allergies Allergy/AdvReac Type Severity Reaction Status Date / Time No Known Allergies Allergy Verified 12/06/17 22:14 PMH/Surg Hx/FS Hx/Imm Hx Endocrine/Hematology History: Denies: Hx Diabetes Cardiovascular History: Denies: Hx Hypertension History: Denies: Hx Renal Disease Sensory History: Denies: Hx Contacts or Glasses Opthamlomology History: Denies: Hx Contacts or Glasses Neurological History: Denies: Other Neuro Impairments/Disorders Psychiatric History: Reports: Hx Anxiety Infectious Disease History: No Infectious Disease History: Denies: Traveled Outside the [place] in Last 30 Days - Family History Known Family History: Positive: Hypertension, Diabetes, Other - cancer Family History: cancer - Social History Alcohol Use: None Hx Substance Use: No Substance Use Type: Reports: None Hx Tobacco Use: No Smoking Status (MU): Never Smoked Tobacco Review of Systems Negative: Fever Positive: Ear Ache Negative: Chest Pain Negative: Shortness Of Breath All Other Systems Reviewed And Are Negative: Yes Physical Exam Triage Information Reviewed: Yes Vital Signs On Initial Exam: Initial Vitals Temp Pulse Resp BP Pulse Ox 98.0 F 84 15 128/77 99 12/06/17 22:11 12/06/17 22:11 12/06/17 22:11 12/06/17 22:11 12/06/17 22:11 Vital Signs Reviewed: Yes Appearance: Positive: Well-Appearing Skin: Positive: Warm, Dry Head/Face: Positive: Normal Head/Face Inspection Eyes: Positive: Normal, EOMI, SANDRA, Conjunctiva Clear ENT: Positive: Pharynx normal, Other - tenderness over tragus and mastoid left ear. edema and erythema and serous fluid in left ear. TM red Neck: Positive: Supple, Nontender, No Lymphadenopathy Respiratory/Lung Sounds: Positive: Clear to Auscultation, Breath Sounds Present Cardiovascular: Positive: Normal, RRR Musculoskeletal: Positive: Normal Neurological: Positive: Normal Psychiatric: Positive: Normal Diagnostics - Vital Signs Vital Signs Temp Pulse Resp BP Pulse Ox 12/07/17 00:03 98.2 F 86 18 131/79 100 12/06/17 22:11 98.0 F 84 15 128/77 99 - Laboratory Lab Results: Lab Results 12/06/17 12/06/17 Range/Units 23:46 23:46 WBC 8.0 (3.5-10.8) 10^3/ul RBC 4.54 (4.00-5.40) 10^6/ul Hgb 12.9 (12.0-16.0) g/dl Hct 38 (35-47) % MCV 84 (80-97) fL MCH 28 (27-31) pg MCHC 34 (31-36) g/dl RDW 14 (10.5-15) % Plt Count 221 (150-450) 10^3/ul MPV 9.2 (7.4-10.4) um3 Neut % (Auto) 56.6 (38-83) % Lymph % (Auto) 33.6 (25-47) % [place] % (Auto) 7.0 (0-7) % Eos % (Auto) 2.4 (0-6) % Baso % (Auto) 0.4 (0-2) % Absolute Neuts (auto) 4.5 (1.5-7.7) 10^3/ul Absolute Lymphs (auto) 2.7 (1.0-4.8) 10^3/ul Absolute Monos (auto) 0.6 (0-0.8) 10^3/ul Absolute Eos (auto) 0.2 (0-0.6) 10^3/ul Absolute Basos (auto) 0 (0-0.2) 10^3/ul Absolute Nucleated RBC 0 10^3/ul Nucleated RBC % 0.2 Sodium 138 (135-145) mmol/L Potassium 3.9 (3.5-5.0) mmol/L Chloride 105 (101-111) mmol/L Carbon Dioxide 26 (22-32) mmol/L Anion Gap 7 (2-11) mmol/L BUN 11 (6-24) mg/dL Creatinine 0.75 (0.51-0.95) mg/dL Est GFR ( Amer) 116.9 (>60) Est GFR (Non-Af Amer) 96.6 (>60) BUN/Creatinine Ratio 14.7 (8-20) Glucose 94 (70-100) mg/dL Calcium 9.5 (8.6-10.3) mg/dL Total Bilirubin 0.30 (0.2-1.0) mg/dL AST 11 L (13-39) U/L ALT 13 (7-52) U/L Alkaline Phosphatase 84 (34-104) U/L C-Reactive Protein 26.67 H (<8.01) mg/L Total Protein 7.5 (6.4-8.9) g/dL Albumin 4.3 (3.2-5.2) g/dL Globulin 3.2 (2-4) g/dL Albumin/Globulin Ratio 1.3 (1-3) Beta HCG, Quant < 0.60 mIU/mL Result Diagrams: 12/06/17 23:46 12/06/17 23:46 Lab Statement: Any lab studies that have been ordered have been reviewed, and results considered in the medical decision making process. EENT Course/Dx - Course Course Of Treatment: 21-year-old female presents with left ear pain for the past couple days. She states she started antibiotic days ago and has taken 2 doses. She states that she has had any decreased hearing. States that she's been having increased pain over the posterior aspect ear that is new. She denies any history of ear infections. She admits to drainage of her ear. No fevers. No sinus congestion. she states the pain radiates to her jaw and it is difficulty to open her jaw due to the pain. No medical conditions. on exam has tenderness over tragus and mastoid of left ear. left ear canal edematous and erythematous. labs wnl. got CT due to tenderness mastoid. placed wick in ear. CT shows serous otitis media. gave referral to ENT. will place on cipro and gave pain medication. patient understand and agrees with plan. - Differential Diagnoses Differential Diagnoses: Otitis Externa, Otitis Media, Sinusitis - Diagnoses Provider Diagnoses: Otitis externa, Otitis media Discharge - Sign-Out/Discharge Documenting (check all that apply): Patient Departure - Discharge Plan Condition: Good Disposition: HOME Prescriptions: Ciprofloxacin TAB* [Cipro 500 MG TAB*] 500 mg PO BID #13 tab oxyCODONE/Acetamin 5/325 MG* [Percocet 5/325 TAB*] 1 tab PO Q6H PRN #8 tab MDD 4 PRN Reason: Pain Patient Education Materials: Otitis Externa (ED) Referrals: No Primary Care Phys,NOPCP [Primary Care Provider] - Carlos Li MD [Medical Doctor] - Additional Instructions: add on ciprofloxacin twice a day for 7 days Take Tylenol or ibuprofen for pain every 6 hours, use percocet for break through pain every 6 hours if wick is still present after two days, return to urgent care or ED to have changed follow up with ENT Return to ED if develop any new or worsening symptoms - Billing Disposition and Condition Condition: GOOD Disposition: Home
[2017-12-07] MEDS ORDERED: Ciproflox/Dexameth OTIC.SUSP* 7.5 ML BTL LEFT EAR ONE (03:15)
[2017-12-07] MEDS ORDERED: oxyCODONE/Acetamin 5/325 MG* TAB PO ONE (03:17)
[2017-12-07] MEDS ORDERED: Ciprofloxacin TAB* 500 MG PO ONE (03:20)
--- NOTE | 2017-12-07 04:29 | RAD ---
EXAM: CT Orbits, Sella, Posterior Fossa or Auditory System Without Intravenous Contrast CLINICAL HISTORY: 21 years old, female; Pain; Jaw pain; Additional info: Left ear pain TECHNIQUE: Axial computed tomography images of the orbits, sella, posterior fossa or auditory system without intravenous contrast. All CT scans at this facility use at least one of these dose optimization techniques: automated exposure control; mA and/or kV adjustment per patient size (includes targeted exams where dose is matched to clinical indication); or iterative reconstruction. Coronal and sagittal reformatted images were created and reviewed. COMPARISON: BRAIN WO CT BRAIN WO 05/31/2013 1:00 PM FINDINGS: Sella: Unremarkable. Mastoid air cells: See below. Auditory system: Soft tissue swelling involving the mucosa of the left external auditory canal. No bony destruction is seen. The soft tissue swelling extends medially to abut the tympanic membrane. Fluid in his seen in the left middle air cavity surrounding the malleus, incus and stapes. Fluid is located in the hypotympanic base, mesotympanic space and slightly in the epitympanic space. Fluid is noted in the left mastoid sinus. The contralateral right external auditory canal is normal in appearance. The right middle ear cavity is normal in appearance as well as the mastoid sinus. Bones/joints: The appearance of the right and left temporomandibular joints are normal in appearance. Soft tissues: Prominent left intraparotid lymph nodes on the left side. IMPRESSION: 1. Thickening of the wall of the left external auditory canal. No associated bony destruction. This extends medially to involve the tympanic membrane in which there is fluid located in the middle ear cavity. This fluid involves the hypotympanic, mesotympanic and epitympanic spaces. No obvious disruption of the ossicles. Fluid is located in the left mastoid air cells. No bony destruction. The appearance of the nasopharynx is normal. This may represent an external otitis media with an associated sympathetic effusion in the middle ear cavity. Suggest culturing the external auditory canal. I do not have a history that the patient is a diabetic. The appearance of the fluid in the middle ear cavity is consistent with a serous otitis. However if the patient's pain persists I was just a followup CT exam to see if there is evidence of ossicular erosion. 2. The appearance of the temporomandibular joint on the left is normal. The pain in the jaw may be a referred pain. No evidence of destruction of the facial recess or of the geniculate ganglion. To contact [facility] with a general question: Operations Center - [phone] For direct physician to physician contact: Physician Hotline - [phone] [facility] ([facility] Facility ID #[id number])
[2017-12-07 05:01] VITALS: BP 108/76
== END 2017-12-07 04:50 | disposition home or self-care (01) ==
LOC: ED 22:10
DX: H60.90 Unspecified otitis externa, unspecified ear (principal); H66.92 Otitis media, unspecified, left ear; H92.02 Otalgia, left ear
CPT/HCPCS: 36415; 70480; 80053; 84702; 85025; 86140; 99283; A9270-GY; J1885

== ENCOUNTER 2018-02-12 12:35 | Emergency (ER) | payer OTHER ==
[2018-02-12] MEDS ORDERED: Ketorolac INJ* 60 MG/2 ML VIAL IM ONE (13:51)
--- NOTE | 2018-02-12 14:04 | ED ---
Breast Complaint - HPI Summary HPI Summary: Please presents with left-sided painful breast lump since yesterday. She is not typically do routine breast exams however when pain started she checked herself and noticed a bump in the 12:00 region. She also has some tenderness along her left rib cage. Denies fevers, chills, skin changes, swollen upper extremity, pain in her arm, injury to chest, nipple discharge, trauma. She is 15 months and has not breast-fed in the past 13 months. No issues with breast-feeding, duct issues, mastitis, etc. No known family history of breast, ovarian, uterine, colon cancer however mom reports there have been other cancer such as leukemia. She has had mirena in since 2 weeks after delivering baby - no period since. Abnormal pap before period - normal after. 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 She was also dx'd w/ post depression but has not addressed this w/ counseling nor medication. Reports she gets panic attacks as a result. Doesn't sleep well -has a lot on her mind. - History of Current Complaint Hx Obtained From: Patient, Family/Dry Mill Worker - mom - Allergy/Home Medications Allergies/Adverse Reactions: Allergies Allergy/AdvReac Type Severity Reaction Status Date / Time No Known Allergies Allergy Verified 12/06/17 22:14 PMH/Surg Hx/FS Hx/Imm Hx Previously Healthy: Yes Endocrine/Hematology History: Denies: Hx Anticoagulant Therapy, Hx Blood Disorders, Hx Diabetes, Hx Thyroid Disease, Hx Unexplained Bleeding, Autoimmune Disease Cardiovascular History: Denies: Hx Hypertension History: Denies: Hx Renal Disease Sensory History: Denies: Hx Contacts or Glasses Opthamlomology History: Denies: Hx Contacts or Glasses Neurological History: Denies: Other Neuro Impairments/Disorders Psychiatric History: Reports: Hx Anxiety - dx'd w/ post depression Infectious Disease History: No Infectious Disease History: Denies: Hx of Known/Suspected MRSA, Traveled Outside the [place] in Last 30 Days - Family History Known Family History: Positive: Hypertension, Diabetes, Other - cancer Family History: cancer (some are unknown but leukemia is one) - Social History 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 Lives: With Family Alcohol Use: None Hx Substance Use: No Substance Use Type: Reports: None Hx Tobacco Use: No Smoking Status (MU): Never Smoked Tobacco Review of Systems Constitutional: Negative Negative: Fever, Chills, Fatigue Cardiovascular: Negative Negative: Chest Pain Respiratory: Negative Negative: Shortness Of Breath Gastrointestinal: Negative Genitourinary: Negative Musculoskeletal: Negative Skin: Negative Negative: Rash Neurological: Negative Psychological: Normal All Other Systems Reviewed And Are Negative: Yes Physical Exam Triage Information Reviewed: Yes Vital Signs On Initial Exam: Initial Vitals Temp Pulse Resp BP Pulse Ox 98.0 F 96 19 124/81 98 02/12/18 12:43 02/12/18 12:43 02/12/18 12:43 02/12/18 12:43 02/12/18 12:43 Vital Signs Reviewed: Yes Appearance: Positive: Well-Appearing, Pain Distress - mild, Obese Skin: Positive: Warm, Skin Color Reflects Adequate Perfusion, Dry - no erythema , no ecchymosis, no induration, no peau de orange on breast exam, Other - breasts evaluated B/L; no changes in tissue w/ arms above head or on waist however Lt breast appears slightly larger then Rt upon observation; B/L breasts are dense w/ fibrocystic tissue - Rt breast w/o discrete masses or abnormal findings; Lt breast with fairly well defined mass about 5cm in size palpated at 12:00 in Lt breast - TTP - mobile - no overlying fever or skin changes, no nipple d/c; axillarym humerus and epitrochlear region w/o palpable LN's Head/Face: Positive: Normal Head/Face Inspection Eyes: Positive: Normal, EOMI ENT: Positive: Hearing grossly normal Neck: Positive: Supple, Nontender, No Lymphadenopathy, Other: - TTP along Lt midaxillary region - no discrete masses or LN's palpated however may be difficult given pt's body habitus Respiratory/Lung Sounds: Positive: Clear to Auscultation, Breath Sounds Present. Negative: Rales, Rhonchi, Wheezes Cardiovascular: Positive: Normal, RRR, S1, S2 Abdomen Description: Positive: Nontender, No Organomegaly, Soft Bowel Sounds: Positive: Present Musculoskeletal: Positive: Normal, Strength/ROM Intact Neurological: Positive: Normal, Sensory/Motor Intact, Alert, Oriented to Person Place, Time, CN Intact II-III Psychiatric: Positive: Normal - concerned but calm, polite, cooperative and pleasant Diagnostics - Vital Signs Vital Signs Temp Pulse Resp BP Pulse Ox 02/12/18 13:35 90 117/66 100 02/12/18 13:05 101 116/71 98 02/12/18 13:03 81 98 02/12/18 12:43 98.0 F 96 19 124/81 98 - Laboratory Result Diagrams: 02/12/18 13:55 02/12/18 13:55 Lab Statement: Any lab studies that have been ordered have been reviewed, and results considered in the medical decision making process. Breast Pain Course/Dx - Course Course Of Treatment: No clinical or lab signs of infection therefore will refrain from ordering U/S for abscess. She is advised to f/u with NUCLEAR EQUIPMENT SALES ENGINEER tomorrow as imaging may be ordered outpt. In the meantime, may try supportive care for pain. Also advised to remind provider she had IUD in place in the event this is causing/exacerbating sx. - Diagnoses Provider Diagnoses: Left breast mass Discharge - Sign-Out/Discharge Documenting (check all that apply): Patient Departure - Discharge Plan Condition: Stable Disposition: HOME Patient Education Materials: Breast Mass (ED) Forms: *Work Release Referrals: Ganesh Chairez DO [Primary Care Provider] - Ana Zelaya CNM [Certified Nurse Stamp Presser] - Additional Instructions: You appear to have a new onset of left breast mass. The origin of this mass is unknown at this time however it is important you follow up with your PCP or sub assembly team worker for further testing. This may include ultrasound, mammography and/ or biopsy. Call tomorrow to notify them of your symptoms and schedule an appointment. In the meantime, you may try warm compresses alternating with ice as well as NSAIDs such as naproxen 500mg every 12 hours with food or ibuprofen 600mg every 6 hours with food as needed for pain and swelling. *If in the meantime you develop fever, chills, arm swelling or pain, return to the emergency department. NOTE: You also mentioned you were diagnosed with depression and are struggling with anxiety. It is important that you follow-up with your provider as counseling and/or medication may be very beneficial in helping you through this time. Call tomorrow to schedule an appointment. If in the meantime you develop thoughts of harming herself or others, call 911 or return to the emergency department. - Billing Disposition and Condition Condition: STABLE Disposition: Home
[2018-02-12 14:07] LABS: ABS Basophils 0 10^3/ul (0-0.2); ABS Eosinophils 0.2 10^3/ul (0-0.6); ABS Lymphocytes 1.7 10^3/ul (1.0-4.8); ABS Monocytes 0.3 10^3/ul (0-0.8); ABS Neutrophils 2.7 10^3/ul (1.5-7.7); ABS Nucleated RBC 0 10^3/ul; Eosinophil % 3.2 %; Hematocrit 40 % (35-47); Hemoglobin 13.3 g/dl (12.0-16.0); Lymphocyte % 34.1 %; Mean Corpuscular HGB Conc 34 g/dl (31-36); Mean Corpuscular Hemoglobin 28 pg (27-31); Mean Corpuscular Volume 84 fL (80-97); Mean Platelet Volume 9.1 fL (7.4-10.4); Nucleated Red Blood Cells % 0; Platelet Count 234 10^3/ul (150-450); Red Blood Count 4.71 10^6/ul (4.00-5.40); Red Cell Distribution Width 14 % (10.5-15); White Blood Count 4.9 10^3/ul (3.5-10.8)
[2018-02-12 14:23] LABS: EGFR Non-African American 90.2 (>60)
[2018-02-12 16:12] VITALS: BP 100/65
== END 2018-02-12 15:15 | disposition home or self-care (01) ==
LOC: ED 12:35
DX: N63.0 Unspecified lump in unspecified breast (principal); Z97.5 Presence of (intrauterine) contraceptive device
CPT/HCPCS: 36415; 80053; 83605; 84702; 85025; 86140; 96372; 99283; J1885

== ENCOUNTER 2018-02-18 21:17 | Emergency (ER) | payer OTHER ==
[2018-02-18] MEDS ORDERED: Ondansetron INJ* 2 MG/ML VIAL IV ONE (21:48)
[2018-02-18] MEDS ORDERED: NS 0.9% 1000 ML* 1,000 ML IV ONE ×2 (21:48→23:30)
--- NOTE | 2018-02-18 21:53 | ED ---
GI/ HPI - HPI Summary HPI Summary: 22-year-old female presents with nausea vomiting diarrhea for the past 3 hours. She admits to epigastric pain. She denies any chest pain or shortness breath. No cough. No sore throat. No fevers. States boyfriend is starting to get sick with similar symptoms. States diarrhea is watery. No blood in her stool. Has had this before. denies any urinary symptoms. No abnormal vaginal discharge. She states she has had multiple episodes of nausea vomiting and diarrhea. no recent antibiotic usage. - History of Current Complaint Chief Complaint: EDNauseaVomitDiarrh Time Seen by Provider: 02/18/18 21:35 Stated Complaint: VOMITING/DIARRHEA, FEVER Hx Last Menstrual Period: MIRENA IUD Pain Intensity: 10 - Allergy/Home Medications Allergies/Adverse Reactions: Allergies Allergy/AdvReac Type Severity Reaction Status Date / Time No Known Allergies Allergy Verified 02/18/18 21:31 PMH/Surg Hx/FS Hx/Imm Hx Endocrine/Hematology History: Denies: Hx Anticoagulant Therapy, Hx Blood Disorders, Hx Diabetes, Hx Thyroid Disease, Hx Unexplained Bleeding Cardiovascular History: Denies: Hx Hypertension History: Denies: Hx Renal Disease Sensory History: Denies: Hx Contacts or Glasses Opthamlomology History: Denies: Hx Contacts or Glasses Neurological History: Denies: Other Neuro Impairments/Disorders Psychiatric History: Reports: Hx Anxiety - dx'd w/ post depression Infectious Disease History: No Infectious Disease History: Denies: Hx of Known/Suspected MRSA, Traveled Outside the [place] in Last 30 Days - Family History Known Family History: Positive: Hypertension, Diabetes, Other - cancer Family History: cancer (some are unknown but leukemia is one) - Social History Alcohol Use: None Hx Substance Use: No Substance Use Type: Reports: None Hx Tobacco Use: No Smoking Status (MU): Never Smoked Tobacco Review of Systems Negative: Fever Negative: Chest Pain Negative: Shortness Of Breath Positive: Abdominal Pain, Vomiting, Diarrhea, Nausea All Other Systems Reviewed And Are Negative: Yes Physical Exam Triage Information Reviewed: Yes Vital Signs On Initial Exam: Initial Vitals Temp Pulse Resp BP Pulse Ox 100.2 F 106 18 164/131 99 02/18/18 21:27 02/18/18 21:27 02/18/18 21:27 02/18/18 21:27 02/18/18 21:27 Vital Signs Reviewed: Yes Appearance: Positive: Well-Appearing Skin: Positive: Warm, Dry Head/Face: Positive: Normal Head/Face Inspection Eyes: Positive: Normal, Conjunctiva Clear ENT: Positive: Pharynx normal Respiratory/Lung Sounds: Positive: Clear to Auscultation, Breath Sounds Present Cardiovascular: Positive: Normal, RRR Abdomen Description: Positive: Nontender, Soft Bowel Sounds: Positive: Present Musculoskeletal: Positive: Normal Neurological: Positive: Normal Psychiatric: Positive: Normal Diagnostics - Vital Signs Vital Signs Temp Pulse Resp BP Pulse Ox 02/18/18 21:32 119/65 02/18/18 21:27 100.2 F 106 18 164/131 99 - Laboratory Result Diagrams: 02/18/18 22:13 02/18/18 22:13 Lab Statement: Any lab studies that have been ordered have been reviewed, and results considered in the medical decision making process. Re-Evaluation - Re-Evaluation First Eval Re-Evaluation Time: 22:42 Change: Improved Comment: nausea improved, has headache now Second Eval Re-Evaluation Time: 23:32 Change: Unchanged Comment: still nauseous Third Eval Re-Evaluation Time: 00:40 Change: Improved Comment: no longer nauseous, no abdominal pain, wants to go home GIGU Course/Dx - Course Course Of Treatment: 22-year-old female presents with nausea vomiting diarrhea for the past 3 hours. She admits to epigastric pain. She denies any chest pain or shortness breath. No cough. No sore throat. No fevers. States boyfriend is starting to get sick with similar symptoms. States diarrhea is watery. No blood in her stool. Has had this before. denies any urinary symptoms. No abnormal vaginal discharge. She states she has had multiple episodes of nausea vomiting and diarrhea. no recent antibiotic usage. On exam nontender abdomen. wbc normal. gave zofran and nausea improved. states has a headache so gave toradol and compazine. symptoms resolved. will send home with zofran. patient understand and agrees with plan. - Diagnoses Differential Diagnoses - Female: Gastroenteritis (Viral), Gastroenteritis ( Bacterial), Urinary Tract Infection Provider Diagnoses: Nausea vomiting and diarrhea, Abdominal pain Discharge - Sign-Out/Discharge Documenting (check all that apply): Patient Departure - Discharge Plan Condition: Good Disposition: HOME Prescriptions: Ondansetron TAB* [Zofran 4 MG Tab*] 4 mg PO Q6H PRN #12 tab PRN Reason: Nausea Patient Education Materials: Acute Nausea and Vomiting (ED) Referrals: Ganesh Chairez DO [Primary Care Provider] - Additional Instructions: Can take Zofran every 6 hours as needed for nausea Drink small amounts of fluid as tolerated When able to eat follow BRAT diet: Bananas, rice, applesauce, toast Take ibuprofen or Tylenol for pain as needed every 6 hours Follow up with primary within 5 days Return to ED if develop any new or worsening symptoms - Billing Disposition and Condition Condition: GOOD Disposition: Home
[2018-02-18 22:22] LABS: ABS Basophils 0 10^3/ul (0-0.2); ABS Eosinophils 0.1 10^3/ul (0-0.6); ABS Monocytes 0.5 10^3/ul (0-0.8); ABS Neutrophils 7.3 10^3/ul (1.5-7.7); ABS Nucleated RBC 0.1 10^3/ul; Eosinophil % 1.5 %; Hematocrit 40 % (35-47); Hemoglobin 13.5 g/dl (12.0-16.0); Lymphocyte % 10.9 %; Mean Corpuscular HGB Conc 34 g/dl (31-36); Mean Corpuscular Hemoglobin 29 pg (27-31); Mean Corpuscular Volume 84 fL (80-97); Mean Platelet Volume 9.3 fL (7.4-10.4); Nucleated Red Blood Cells % 0.7; Platelet Count 262 10^3/ul (150-450); Red Blood Count 4.74 10^6/ul (4.00-5.40); Red Cell Distribution Width 14 % (10.5-15)
[2018-02-18] MEDS ORDERED: Ketorolac INJ* 30 MG/ML 1 ML VIAL IV PUSH ONE (22:38)
[2018-02-18 22:45] LABS: ALT 14 U/L (7-52); Albumin 4.4 g/dL (3.2-5.2); Albumin/Globulin Ratio 1.2 (1-3); Alkaline Phosphatase 92 U/L (34-104); BUN/Creatinine Ratio 13.3 (8-20); Blood Urea Nitrogen 12 mg/dL (6-24); C Reactive Protein 52.28 mg/L (<8.01); CO2 Carbon Dioxide 23 mmol/L (22-32); Calcium 9.3 mg/dL (8.6-10.3); Chloride 105 mmol/L (101-111); EGFR Non-African American 77.6 (>60); Globulin 3.6 g/dL (2-4); Glucose 107 mg/dL (70-100); Sodium 138 mmol/L (135-145)
[2018-02-18 22:50] LABS: HCG Pregnancy < 0.60 mIU/mL
[2018-02-18 23:22] LABS: AST 15 U/L (13-39); Anion Gap 10 mmol/L (2-11); Potassium 4.3 mmol/L (3.5-5.0)
[2018-02-18] MEDS ORDERED: PROCHLORPERAZINE INJ 5 MG/ML 2 ML VIAL IV ONE (23:30)
[2018-02-19] MEDS ORDERED: O ndansetron ODT 4MG 5TAB PRPK 4 MG PAK PO ONE (00:38)
[2018-02-19 01:02] VITALS: BP 128/71
== END 2018-02-19 01:00 | disposition home or self-care (01) ==
LOC: ED 21:17
DX: R10.9 Unspecified abdominal pain (principal); R11.2 Nausea with vomiting, unspecified; R19.7 Diarrhea, unspecified; R50.9 Fever, unspecified
CPT/HCPCS: 36415; 80053; 83690; 84702; 85025; 86140; 96361; 96374; 96375; 99284; A9270-GY; J0780; J1885; J2405

== ENCOUNTER 2018-04-07 06:57 | Emergency (ER) | payer OTHER ==
--- NOTE | 2018-04-07 07:13 | ED ---
Influenza-Like Illness - HPI Summary HPI Summary: Patient is a 22-year-old female presenting with complaints of fever, chills, body aches, sore throat, and cough that began last evening. Patient took her temperature at home around 4:00 this morning and was 102. Took advil for relief. 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 Denies N/V/D, loss of appetite, or urinary symptoms. Denies hx of asthma or COPD. Denies diabetes or autoimmune disorders. Non-smoker. Symptoms are mild in severity. - History of Current Complaint Chief Complaint: EDFluSymptoms Time Seen by Provider: 04/07/18 07:13 Hx Obtained From: Patient Onset/Duration: Gradual Onset - began with body aches Severity: Moderate Associated Signs & Symptoms: Fever, Myalgia, Cough, Sore Throat, Nasal Congestion, Headache Related Hx: Possible Flu/Infectious Exposure - Daycare, Recent Antipyretics Dose And Time - Advil, 4:00 - Allergy/Home Medications Allergies/Adverse Reactions: Allergies Allergy/AdvReac Type Severity Reaction Status Date / Time No Known Allergies Allergy Verified 02/18/18 21:31 PMH/Surg Hx/FS Hx/Imm Hx Previously Healthy: Yes Endocrine/Hematology History: Denies: Hx Anticoagulant Therapy, Hx Blood Disorders, Hx Diabetes, Hx Thyroid Disease, Hx Unexplained Bleeding Cardiovascular History: Denies: Hx Hypertension Respiratory History: Denies: Hx Asthma, Hx Chronic Obstructive Pulmonary Disease (COPD) History: Denies: Hx Renal Disease Sensory History: Denies: Hx Contacts or Glasses Opthamlomology History: Denies: Hx Contacts or Glasses Neurological History: Denies: Other Neuro Impairments/Disorders Psychiatric History: Reports: Hx Anxiety - dx'd w/ post depression - Immunization History Date of Influenza Vaccine: 11/15 Infectious Disease History: No Infectious Disease History: Denies: Hx of Known/Suspected MRSA, Traveled Outside the [place] in Last 30 Days - Family History Known Family History: Positive: Hypertension, Diabetes, Other - cancer Family History: cancer (some are unknown but leukemia is one) - Social History Occupation: Employed Full-time Lives: With Family Alcohol Use: None Hx Substance Use: No Substance Use Type: Reports: None Hx Tobacco Use: No Smoking Status (MU): Never Smoked Tobacco Review of Systems Positive: Fever, Chills, Fatigue Eyes: Negative Positive: Sore Throat. Negative: Ear Ache Cardiovascular: Negative Positive: Cough Gastrointestinal: Negative Negative: Abdominal Pain, Vomiting, Diarrhea, Nausea Genitourinary: Negative Positive: Myalgia Skin: Negative Positive: Headache Psychological: Normal All Other Systems Reviewed And Are Negative: Yes Physical Exam Triage Information Reviewed: Yes Vital Signs On Initial Exam: Initial Vitals Temp Pulse Resp BP Pulse Ox 100.0 F 106 18 123/75 99 04/07/18 07:03 04/07/18 07:03 04/07/18 07:03 04/07/18 07:03 04/07/18 07:03 Vital Signs Reviewed: Yes Appearance: Positive: Well-Appearing - Pt. sitting on bed in NAD. Appears tired but nontoxic. Family member present., Obese Skin: Positive: Warm, Dry Head/Face: Positive: Normal Head/Face Inspection Eyes: Positive: Normal, EOMI, SANDRA ENT: Positive: Normal ENT inspection, Hearing grossly normal, Pharynx normal, Nasal congestion, TMs normal - serous fluid in right ear. Negative: Nasal drainage, Tonsillar swelling, Tonsillar exudate Neck: Positive: Supple, Nontender, No Lymphadenopathy. Negative: Nuchal Rigidity Respiratory/Lung Sounds: Positive: Clear to Auscultation, Breath Sounds Present Cardiovascular: Positive: Normal, RRR Abdomen Description: Positive: Nontender, Soft Bowel Sounds: Positive: Present Musculoskeletal: Positive: Normal, Strength/ROM Intact Neurological: Positive: Normal, Sensory/Motor Intact, Alert, Oriented to Person Place, Time, CN Intact II-III Psychiatric: Positive: Normal, Affect/Mood Appropriate AVPU Assessment: Alert Diagnostics - Vital Signs Vital Signs Temp Pulse Resp BP Pulse Ox 04/07/18 07:03 100.0 F 106 18 123/75 99 - Laboratory Lab Statement: Any lab studies that have been ordered have been reviewed, and results considered in the medical decision making process. Flu Symptom Course/Dx - Course Course Of Treatment: Patient presents to the ed with <24 hr hx of fever, chills , body aches, cough, and sore throat. Patient states she works at a daycare with recent flu outbreak. Patient had recieved flu shot in 11/15. Denies asthma, COPD, or immunocompromising disease. Non-smoker. On clinical exam patient appears fatigued. Right TM with clear serous fluid. Pharynx slightly erythematous. Tonsils without enlargement or exudate. No significant lymphadenopathy. Lungs CTA. RRR. No abdominal tenderness. Flu culture positive for influenza A. Discussed this finding with the patient and she would like to begin tamiflu treatment due to small child at home. Advised rest and adequate hydration and nutrition. Continue otc ibuprofen for symptoms. Avoid work or pubic spaces until fever resolves. Follow-up with pcp as needed. Return to ed with new or worsening symptoms. - Diagnoses Differential Diagnosis/HQI/PQRI: Positive: Bronchitis, Influenza, Upper Respiratory Infection Provider Diagnoses: Influenza A Discharge - Sign-Out/Discharge Documenting (check all that apply): Patient Departure Patient Received Moderate/Deep Sedation with Procedure: No - Discharge Plan Condition: Good Disposition: HOME Prescriptions: Oseltamivir CAP* [Tamiflu CAP*] 75 mg PO BID #10 cap Patient Education Materials: Influenza (ED) Print Language: JORDANIAN Referrals: Ganesh Chairez DO [Primary Care Provider] - Additional Instructions: Make sure you get adequate rest, hydration, and nutrition. Take Tamiflu as prescribed for flu. Continue otc ibuprofen for symptomatic relief. You may continue to experience symptoms for approximately 5-7 days. Avoid work and public placed until fever resolves. Follow-up with primary care provider as needed, or if symptoms persist. Return to ED if you experience new or worsening symptoms. - Billing Disposition and Condition Condition: GOOD Disposition: Home
[2018-04-07 07:47] LABS: Influenza A Molecular POSITIVE (Negative)
[2018-04-07 08:26] VITALS: BP 128/68
== END 2018-04-07 08:25 | disposition home or self-care (01) ==
LOC: ED 06:57
DX: J11.1 Influenza due to unidentified influenza virus with other respiratory manifestations (principal); R50.9 Fever, unspecified; R05 Cough; R51 Headache
CPT/HCPCS: 99282

== ENCOUNTER 2018-12-17 09:55 | Emergency (ER) | payer OTHER ==
[2018-12-17 10:46] LABS: ABS Eosinophils 0.2 10^3/ul (0-0.6); ABS Monocytes 0.5 10^3/ul (0-0.8); ABS Neutrophils 2.4 10^3/ul (1.5-7.7); Eosinophil % 3.6 %; Hematocrit 40 % (35-47); Hemoglobin 13.5 g/dL (12.0-16.0); Lymphocyte % 39.3 %; Mean Corpuscular HGB Conc 34 g/dL (31-36); Mean Corpuscular Hemoglobin 29 pg (27-31); Mean Corpuscular Volume 84 fL (80-97); Mean Platelet Volume 9.6 fL (7.4-10.4); Nucleated Red Blood Cells % 0.1; Platelet Count 210 10^3/uL (150-450); Red Blood Count 4.75 10^6 /uL (3.70-4.87); Red Cell Distribution Width 13 % (10-15); White Blood Count 5.1 10^3/uL (3.5-10.8)
[2018-12-17 11:00] LABS: BUN/Creatinine Ratio 12.8 (8-20); Calcium 9.2 mg/dL (8.6-10.3); EGFR African American 110.7 (>60); EGFR Non-African American 91.5 (>60); Potassium 3.9 mmol/L (3.5-5.0)
[2018-12-17 11:26] LABS: Free T3 4.4 pg/mL (2.5-3.9); Free T4 0.94 ng/dL (0.61-1.12)
[2018-12-17 12:02] VITALS: BP 106/68
--- NOTE | 2018-12-17 16:48 | ED ---
Throat Pain/Nasal Congestion - HPI Summary HPI Summary: Patient is a 22-year-old female who presents emergency department for increase throat pain. Pt. states she has been experiencing throat pain with swallowing for several months. Pt. states she saw her PCP who was concerned she had an enlarged thyroid and ordered outpt. thyroid labs. Pt states she never followed up to have labs done. Pt. is concerned is concerned for her thyroid function and presents to er for eval. Pt. denies recent fever, cough, ear pain, cough, rash. Sxs are mild in severity. No current modifying factors. - History of Current Complaint Chief Complaint: EDThroatPain Time Seen by Provider: 12/17/18 10:08 Hx Obtained From: Patient - Allergies/Home Medications Allergies/Adverse Reactions: Allergies Allergy/AdvReac Type Severity Reaction Status Date / Time No Known Allergies Allergy Verified 02/18/18 21:31 PMH/Surg Hx/FS Hx/Imm Hx Previously Healthy: Yes Endocrine/Hematology History: Denies: Hx Anticoagulant Therapy, Hx Blood Disorders, Hx Diabetes, Hx Thyroid Disease, Hx Unexplained Bleeding Cardiovascular History: Denies: Hx Hypertension Respiratory History: Denies: Hx Asthma, Hx Chronic Obstructive Pulmonary Disease (COPD) History: Denies: Hx Renal Disease Sensory History: Denies: Hx Contacts or Glasses Opthamlomology History: Denies: Hx Contacts or Glasses Neurological History: Denies: Other Neuro Impairments/Disorders Psychiatric History: Reports: Hx Anxiety - dx'd w/ post depression - Immunization History Date of Influenza Vaccine: 11/15 Infectious Disease History: No Infectious Disease History: Denies: Hx of Known/Suspected MRSA, Traveled Outside the [place] in Last 30 Days - Family History Known Family History: Positive: Hypertension, Diabetes, Other - cancer Family History: cancer (some are unknown but leukemia is one) - Social History Occupation: Employed Full-time Lives: With Family Alcohol Use: None Hx Substance Use: No Substance Use Type: Reports: None Hx Tobacco Use: No Smoking Status (MU): Never Smoked Tobacco Review of Systems Constitutional: Negative Negative: Fever Positive: Sore Throat, Other - Swelling and discomfort to neck Cardiovascular: Negative Respiratory: Negative Gastrointestinal: Negative Skin: Negative Neurological: Negative All Other Systems Reviewed And Are Negative: Yes Physical Exam Triage Information Reviewed: Yes Vital Signs On Initial Exam: Initial Vitals Temp Pulse Resp BP Pulse Ox 97.8 F 85 18 116/83 99 10/20/19 09:58 12/17/18 09:58 12/17/18 09:58 12/17/18 09:58 12/17/18 09:58 Vital Signs Reviewed: Yes Appearance: Positive: Well-Appearing Skin: Positive: Warm, Dry Head/Face: Positive: Normal Head/Face Inspection Eyes: Positive: Normal, EOMI, SANDRA, Conjunctiva Clear ENT: Positive: Pharynx normal, TMs normal. Negative: Pharyngeal erythema, Tonsillar swelling, Tonsillar exudate Neck: Positive: Supple, Nontender, No Lymphadenopathy, Other: - Questionable palpable enlarged thyroid? No tenderness.. Negative: Nuchal Rigidity Respiratory/Lung Sounds: Positive: Clear to Auscultation, Breath Sounds Present Cardiovascular: Positive: Normal, RRR Neurological: Positive: Normal, CN Intact II-III Psychiatric: Positive: Affect/Mood Appropriate Procedures - Sedation Patient Received Moderate/Deep Sedation with Procedure: No Diagnostics - Vital Signs Vital Signs Temp Pulse Resp BP Pulse Ox 12/17/18 12:01 98.3 F 73 16 106/68 100 12/17/18 09:58 97.8 F 85 18 116/83 99 - Laboratory Lab Results: Lab Results 12/17/18 12/17/18 Range/Units 10:39 10:39 WBC 5.1 (3.5-10.8) 10^3/uL RBC 4.75 (3.70-4.87) 10^6 /uL Hgb 13.5 (12.0-16.0) g/dL Hct 40 (35-47) % MCV 84 (80-97) fL MCH 29 (27-31) pg MCHC 34 (31-36) g/dL RDW 13 (10-15) % Plt Count 210 (150-450) 10^3/uL MPV 9.6 (7.4-10.4) fL Neut % (Auto) 46.6 % Lymph % (Auto) 39.3 % [place] % (Auto) 9.6 % Eos % (Auto) 3.6 % Baso % (Auto) 0.9 % Absolute Neuts (auto) 2.4 (1.5-7.7) 10^3/ul Absolute Lymphs (auto) 2.0 (1.0-4.8) 10^3/ul Absolute Monos (auto) 0.5 (0-0.8) 10^3/ul Absolute Eos (auto) 0.2 (0-0.6) 10^3/ul Absolute Basos (auto) 0.0 (0-0.2) 10^3/ul Absolute Nucleated RBC 0.0 10^3/ul Nucleated RBC % 0.1 Sodium 138 (135-145) mmol/L Potassium 3.9 (3.5-5.0) mmol/L Chloride 106 (101-111) mmol/L Carbon Dioxide 25 (22-32) mmol/L Anion Gap 7 (2-11) mmol/L BUN 10 (6-24) mg/dL Creatinine 0.78 (0.51-0.95) mg/dL Est GFR ( Amer) 110.7 (>60) Est GFR (Non-Af Amer) 91.5 (>60) BUN/Creatinine Ratio 12.8 (8-20) Glucose 90 (70-100) mg/dL Calcium 9.2 (8.6-10.3) mg/dL TSH 1.00 (0.34-5.60) mcIU/mL Free T4 0.94 (0.61-1.12) ng/dL Free T3 4.40 H (2.5-3.9) pg/mL Result Diagrams: 12/17/18 10:39 12/17/18 10:39 Lab Statement: Any lab studies that have been ordered have been reviewed, and results considered in the medical decision making process. EENT Course/Dx - Course Course Of Treatment: Pt. with above complaints. Benign exam. Labs unremarkable other than minimally elevated free T3. Advised pt. to call pcp today for close fu and outpt. thyroid u/s for further evaluation of sxs. Pt. understands and agrees with plan. - Diagnoses Provider Diagnoses: Odynophonia Discharge ED - Sign-Out/Discharge Documenting (check all that apply): Patient Departure - Discharge Plan Condition: Good Disposition: HOME Referrals: Ganesh Chairez DO [Primary Care Provider] - Additional Instructions: Please call your PCP tomorrow to be schedule for an out patient ultrasound of your thyroid Return to ER if symptoms change or worsen - Billing Disposition and Condition Condition: GOOD Disposition: Home - Attestation Statements Provider Attestation: I was available for consult. This patient was seen by the KEVIN. The patient was not presented to, seen by, or examined by me. Roger Joshi MD
== END 2018-12-17 12:00 | disposition home or self-care (01) ==
LOC: ED 09:55
DX: R07.0 Pain in throat (principal)
CPT/HCPCS: 36415; 80048; 84439; 84443; 84481; 85025; 99282

== ENCOUNTER 2019-02-19 19:13 | Emergency (ER) | payer OTHER ==
[2019-02-19 19:26] VITALS: BP 95/62
--- NOTE | 2019-02-19 19:50 | UC ---
Throat Pain/Nasal Julius HPI - HPI Summary HPI Summary: 23 year old female presents with throat pain, feeling of mass. States pain started today about an hour ago but has been seen in past for similiar symptoms. STates she was told she has thyroid problems, underwent an ? endoscopy with dr. Morales, did not follow up. STates she does not have a PCP and has not had close follow up. Concerned about thyroid today, as patient has a FMH + for hyperthyroid disease. - History of Current Complaint Chief Complaint: UCRespiratory Stated Complaint: SORE THROAT Time Seen by Provider: 02/19/19 19:14 Hx Obtained From: Patient, Family/Countersinker [employer] - friend Hx Last Menstrual Period: iud ?: No Onset/Duration: Sudden Onset, Lasting Weeks Severity: Moderate Pain Intensity: 5 Pain Scale Used: 0-10 Numeric Cough: None Associated Signs & Symptoms: Positive: Dysphagia - minimal, able to swallow well. Negative: Drooling - Allergies/Home Medications Allergies/Adverse Reactions: Allergies Allergy/AdvReac Type Severity Reaction Status Date / Time No Known Allergies Allergy Verified 02/19/19 19:26 PMH/Surg Hx/FS Hx/Imm Hx Previously Healthy: Yes Other History Of: Negative For: Anticoagulant Therapy - Surgical History Surgical History: None - Family History Known Family History: Positive: Hypertension, Diabetes, Other - cancer Family History: cancer (some are unknown but leukemia is one) - Social History Alcohol Use: None Substance Use Type: None Smoking Status (MU): Never Smoked Tobacco - Immunization History Most Recent Tetanus Shot: UTD Review of Systems All Other Systems Reviewed And Are Negative: Yes Constitutional: Negative: Fever, Chills, Fatigue ENT: Positive: Sore Throat. Negative: Sinus Congestion, Sinus Pain/Tenderness Respiratory: Negative: Shortness Of Breath Neurological: Negative: Headache Is Patient Immunocompromised?: No Physical Exam Triage Information Reviewed: Yes Appearance: Well-Appearing, No Pain Distress, Well-Nourished Vital Signs: Initial Vital Signs Temp 98.2 F 02/19/19 19:20 Pulse 85 02/19/19 19:20 Resp 16 02/19/19 19:20 BP 95/62 02/19/19 19:20 Pulse Ox 98 02/19/19 19:20 Vital Signs Reviewed: Yes Eyes: Positive: Conjunctiva Clear ENT: Positive: Hearing grossly normal Neck: Positive: Supple, Nontender, No Lymphadenopathy, Other: - thyroid non- palpable, no masses/ nodules noted.. Negative: Nuchal Rigidity, Enlarged Nodes @ Respiratory: Positive: Chest non-tender, Lungs clear, Normal breath sounds, No respiratory distress, No accessory muscle use. Negative: Respiratory distress, Crackles, Rhonchi, Stridor, Wheezing, Expiration Cardiovascular: Positive: RRR, No Murmur, Pulses Normal Throat Pain/Nasal Course/Dx - Course Course Of Treatment: Rapid strep negative - Please call and get an appointment with a primary physician - Return with decreased ability to swallow, increased pain - Labs will be completed tomorrow. - Differential Dx/Diagnosis Provider Diagnosis: Pharyngitis Discharge ED - Sign-Out/Discharge Documenting (check all that apply): Patient Departure All imaging exams completed and their final reports reviewed: No Studies - Discharge Plan Condition: Good Disposition: HOME Patient Education Materials: Pharyngitis (ED) Referrals: Ganesh Chairez DO [Primary Care Provider] - [facility] [Outside] Additional Instructions: - Please call and get an appointment with a primary physician - Return with decreased ability to swallow, increased pain - Labs will be completed tomorrow. - Billing Disposition and Condition Condition: GOOD Disposition: Home
[2019-02-20 11:44] LABS: TSH (Thyroid Stimulating Horm) 1.08 mcIU/mL (0.34-5.60)
[2019-02-20 11:47] LABS: Free T3 3.7 pg/mL (2.5-3.9)
[2019-02-20 11:48] LABS: Free T4 1.01 ng/dL (0.61-1.12)
--- NOTE | 2019-02-20 15:25 | UC ---
- Progress Note Progress Note: Labs reviewed --23 yo woman with sore throat and sense of mass in her throat. Please call to advise that her thyroid function is normal. Course/Dx - Diagnoses Provider Diagnoses: Pharyngitis Discharge ED - Sign-Out/Discharge Documenting (check all that apply): Post-Discharge Follow Up All imaging exams completed and their final reports reviewed: No Studies - Discharge Plan Condition: Good Disposition: HOME Patient Education Materials: Pharyngitis (ED) Referrals: [facility] [Outside] Ganesh Chairez DO [Primary Care Provider] - Additional Instructions: - Please call and get an appointment with a primary physician - Return with decreased ability to swallow, increased pain - Labs will be completed tomorrow. - Billing Disposition and Condition Condition: GOOD Disposition: Home
== END 2019-02-19 20:00 | disposition home or self-care (01) ==
LOC: UCEAST 19:13
DX: J02.9 Acute pharyngitis, unspecified (principal)
CPT/HCPCS: 36415; 84439; 84443; 84481; 87651; 99211; G0463

== ENCOUNTER 2019-03-12 20:12 | Emergency (ER) | payer OTHER ==
[2019-03-12 20:28] VITALS: BP 111/68
--- NOTE | 2019-03-12 20:30 | UC ---
Ear Complaint HPI - HPI Summary HPI Summary: Patient is a 23yo female presenting with mother for Lear pain x2 days that has gradually worsened. Patient states pain radiating into L jaw now. Notes plugged feeling and decreased hearing. Denies drainage or bleeding. Denies recent URI symptoms. Denies sore throat. Denies fever and chills. Denies n/v. Patient states she took 500mg of ibuprofen at 2pm today without relief of pain. Patient states she took a dose of amoxicillin this morning "that was left over from something else." - History of Current Complaint Chief Complaint: UCEar Stated Complaint: EAR PAIN Hx Obtained From: Patient Hx Last Menstrual Period: IUD Pain Intensity: 10 Pain Scale Used: 0-10 Numeric - Allergies/Home Medications Allergies/Adverse Reactions: Allergies Allergy/AdvReac Type Severity Reaction Status Date / Time No Known Allergies Allergy Verified 03/12/19 20:28 PMH/Surg Hx/FS Hx/Imm Hx Previously Healthy: Yes Other History Of: Negative For: Anticoagulant Therapy - Surgical History Surgical History: None - Family History Known Family History: Positive: Hypertension, Diabetes, Other - cancer Family History: cancer (some are unknown but leukemia is one) - Social History Alcohol Use: None Substance Use Type: None Smoking Status (MU): Never Smoked Tobacco - Immunization History Most Recent Tetanus Shot: UTD Review of Systems All Other Systems Reviewed And Are Negative: Yes Constitutional: Positive: Negative. Negative: Fever, Chills ENT: Positive: Ear Ache - Left. Negative: Sore Throat, Sinus Congestion Respiratory: Positive: Negative Cardiovascular: Positive: Negative Gastrointestinal: Positive: Negative Neurological: Positive: Headache Physical Exam Triage Information Reviewed: Yes Appearance: Pain Distress, Obese Vital Signs: Initial Vital Signs Temp 99.8 F 03/12/19 20:25 Pulse 90 03/12/19 20:25 Resp 18 03/12/19 20:25 BP 111/68 03/12/19 20:25 Pulse Ox 99 03/12/19 20:25 Vital Signs Reviewed: Yes Eyes: Positive: Conjunctiva Clear ENT: Positive: Hearing grossly normal, Pharynx normal, TMs normal - Right TM intact with nl light reflex and landmarks appreciated. Left TM unable to be visualized d/t EAC edema and purulent drainage, Uvula midline, Other - increased pain with manipulation of L auricle. Negative: Nasal congestion, Trismus Neck: Positive: Supple, Nontender, Enlarged Nodes @ - L post auricular Respiratory Exam: Normal Respiratory: Positive: Lungs clear, Normal breath sounds, No respiratory distress Cardiovascular Exam: Normal Cardiovascular: Positive: RRR Neurological: Positive: Alert Psychological: Positive: Normal Response To Family, Age Appropriate Behavior Ear Complaint Course/Dx - Course Course Of Treatment: Patient presenting with L ear pain x2 days. I was unable to visualize left TM despite removing some purulent drainage with a curette due to edematous EAC. Patient received tylenol and toradol IM here for pain relief. I treated patient with Augmentin and ciprofloxacin drops in case of TM perforation. I treated patient with cipro ophthalmic drops because otic version not available here at the urgent care. I spoke with pharmacy who confirmed it is OK to give opth solution for otic purpose. A wick was placed inside the ear canal to help the medication get inside. I also sent cirpdex prescription to pharmacy along with augmentin prescription. Instructed to continue with both medications as prescribed. Instructed to follow up with ENT for removal of wick if it does not fall out on its own. I also instructed to go to ENT is symptoms persist. Instructed to go to ED with any new or worsening symptoms. Patient voiced understanding and agreed with treatment plan. - Differential Dx/Diagnosis Differential Diagnosis/HQI/PQRI: Otitis Externa, Otitis Media, Perforated TM Provider Diagnosis: Otitis externa, Purulent otorrhea Discharge ED - Sign-Out/Discharge Documenting (check all that apply): Patient Departure All imaging exams completed and their final reports reviewed: No Studies - Discharge Plan Condition: Stable Disposition: HOME Prescriptions: Amoxicillin/Clavulanate TAB* [Augmentin TAB 875*] 875 mg PO BID #13 tab Ciproflox/Dexameth OTIC.SUSP* [Ciprodex Otic*] 3 drop LEFT EAR BID 7 Days #1 bottle Ciprofloxacin 0.3% OPTH.BOBBY* [Cipro 0.3% Opth*] 3 drop .SEE ORDER TID 7 Days #1 btl Patient Education Materials: Otitis Externa (ED) Forms: *Work Release Referrals: [facility] [Outside] [facility] [Outside] Additional Instructions: Take Augmentin and use the antibiotic drops as prescribed. You received the first dose of augmentin here at the urgent care at 9:30pm. You also received drops here. The remainder of the course of your drops and augmentin has been sent to your pharmacy for citrus picker. A wick was placed in your ear today to help the drops get into your ear. This will need to be removed by your ENT or primary care provider at the end of course of treatment if it does not fall out. You may continue to take over the counter pain medications as directed. You may continue to apply warm compresses. Follow up with your primary care provider or your ENT if symptoms persist or worsen. - Billing Disposition and Condition Condition: STABLE Disposition: Home - Attestation Statements Provider Attestation: I was available for consult. This patient was seen by the KEVIN. The patient was not presented to, seen by, or examined by me. -Antonia
[2019-03-12] MEDS ORDERED: Acetaminophen TAB* 325 MG PO ONE (20:40)
[2019-03-12] MEDS ORDERED: Ketorolac *IM* INJ* 60 MG/2 ML VIAL IM ONE (21:01)
[2019-03-12] MEDS ORDERED: Amoxicillin/Clavulanate TAB* 875 MG PO ONE (21:05)
[2019-03-12] MEDS ORDERED: Ciprofloxacin 0.3% OPTH.SOL* BTL ONE (21:06)
== END 2019-03-12 21:37 | disposition home or self-care (01) ==
LOC: UCEAST 20:12
DX: H60.92 Unspecified otitis externa, left ear (principal); H92.12 Otorrhea, left ear; Z23 Encounter for immunization
CPT/HCPCS: 90472; 99213; A9270-GY; G0463; J1885

== ENCOUNTER 2019-06-13 16:57 | Emergency (ER) | payer OTHER ==
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
--- NOTE | 2019-06-13 17:11 | UC ---
Laceration HPI - HPI Summary HPI Summary: 23 y/o female presents to the urgent care c/o laceration of her Rt index finger with a knife while washing dishes about 30 mins ago. Pt reports she irrigated her finger and applied pressure, but still bleeding. Pain is 6/10 and can move her finger w/o any difficulty and denies any numbness or tingling sensation over her Rt hand. Pt states last Tetanus vaccines was last year 2018. Pt denies fever, cough, SOB, cough, URi symptoms, sick contacts, abdominal pain , MOORE, dizziness, N/V/d. - History Of Current Complaint Chief Complaint: UCLaceration Stated Complaint: FINGER LACERATION Time Seen by Provider: 06/13/19 17:08 Hx Obtained From: Patient Hx Last Menstrual Period: IUD Laceration Location: Finger - Rt index finger laceration w/ a knife s/p wshing dishes Mechanism Of Injury: Sharp Trauma Onset/Duration: Lasting Minutes - 30 mins ago Severity: Moderate Pain Intensity: 6 Pain Scale Used: 0-10 Numeric Aggravating Factors: Other: - touch Related History: Dominant Hand Right - Allergies/Home Medications Allergies/Adverse Reactions: Allergies Allergy/AdvReac Type Severity Reaction Status Date / Time No Known Allergies Allergy Verified 06/13/19 17:07 Home Medications: Home Medications Levonorgestrel (Iud) [Mirena IUD] 1 implant INTRAUTERI DAILY 12/06/17 [History Confirmed 06/13/19] Bacitracin OINTMENT* 1 applic TOPICAL BID #1 tube 06/13/19 [Rx] buPROPion TAB* [Wellbutrin TAB*] 75 mg PO BID 06/13/19 [History Confirmed ] PMH/Surg Hx/FS Hx/Imm Hx Previously Healthy: Yes - denies PMHX Other History Of: Negative For: Anticoagulant Therapy - Surgical History Surgical History: None - Family History Known Family History: Positive: Hypertension, Diabetes, Other - cancer Family History: cancer (some are unknown but leukemia is one) - Social History Occupation: Employed Full-time Lives: With Family Alcohol Use: None Substance Use Type: None Smoking Status (MU): Never Smoked Tobacco - Immunization History Most Recent Tetanus Shot: 2018 Hx Tetanus, Diphtheria Vaccination: Yes - last year Review of Systems All Other Systems Reviewed And Are Negative: Yes Constitutional: Positive: Negative Skin: Positive: Other - laceration of Rt index finger w/ a knife while washing the dishes Eyes: Positive: Negative ENT: Positive: Negative Respiratory: Positive: Negative Cardiovascular: Positive: Negative Gastrointestinal: Positive: Negative Genitourinary: Positive: Negative Motor: Positive: Negative Neurovascular: Positive: Negative Musculoskeletal: Positive: Other: - RT index finger s/p laceration Neurological/Mental Status: Positive: Negative Psychological: Positive: Negative Is Patient Immunocompromised?: No Physical Exam - Summary Physical Exam Summary: Vital Signs Reviewed: Yes General: well developed, well nourished female sitting in the examining table w/ o any apparent distress Eye Exam: Normal Eyes: Positive: Conjunctiva Clear - PERRLA, EOMI, fundi grossly normal ENT: Positive: Normal ENT inspection, Hearing grossly normal, Pharynx normal, TMs normal Neck: Positive: Supple, Nontender, No Lymphadenopathy Respiratory: Positive: Chest non-tender, Lungs clear, Normal breath sounds, No respiratory distress Cardiovascular: Positive: RRR, No Murmur, Pulses Normal, Brisk Capillary Refill Abdomen Description: Positive: Nontender, No Organomegaly, Soft. Negative: CVA Tenderness (R), CVA Tenderness (L) Bowel Sounds: Positive: Present Musculoskeletal: Positive: Strength Intact, ROM Intact, No Edema Neurological: Positive: Alert, Muscle Tone Normal Psychological Exam: Normal Skin: Positive:Lateral side of RT distal finger around nail with a linear superficial laceration about 1.5cm in size, bleeding, no foreign body observed. mild tenderness to palpation, no ecchymosis around finger. FROM of RT index finger and Rt hand, sensation intact, capillary refill brisk, and pulses WNL. Triage Information Reviewed: Yes Laceration Repair - Laceration Repair 1 Description: Linear - superficial linear laceration on lateral side of the Rt index finger around nail Laceration Size After Repair: Length (cm) - 1.5 Modified For Repair: No Type Injection: Digital Anesthesia Used: 1.0% Lido - 2ml Cleansing Completed Via Routine Prep: Yes Irrigation With Pressure Irrigation Device: Yes Closure Material: Sutures - 3 Closure Method: Single Layer Suture Of: Skin, SQ Suture Type: Prolene - 5.0 Laceration Course/Dx - Course/Dx Course Of Treatment: 23 y/o female presents to the urgent care c/o laceration of her Rt index finger with a knife while washing dishes about 30 mins ago. Pt reports she irrigated her finger and applied pressure, but still bleeding. Pain is 6/10 and can move her finger w/o any difficulty and denies any numbness or tingling sensation over her Rt hand. Pt states last Tetanus vaccines was last year 2019. Pt denies fever, cough, SOB, cough, URi symptoms, sick contacts, abdominal pain , MOORE, dizziness, N/V/d. Hx obtained. Pt w/ Lateral side of RT distal finger around nail with a linear superficial laceration about 1.5cm in size, bleeding , no foreign body observed. mild tenderness to palpation, no ecchymosis around finger. FROM of RT index finger and Rt hand, sensation intact, capillary refill brisk, and pulses WNL on examination. LACERATION PROCEDURE NOTE: . Copious irrigation was done with saline by the nurse and the wound explored. There was no FB or deep structure injury noted. FROM of left forearm. procedure was explained and consent obtained, Timeout performed. The wound was anesthetized by digital block w/ 2mL of 1% lido with good anesthesia. Sterile drape and prep were done. There were 3 sutures with 5.0 Prolene type of suture, laceration under nail was closed w/ skin adhesive and 2 steri-strips. The length of the wound after closure was 1.5cm. No debridement done. Pt tolerated the procedure well without adverse effects. Neurovascular intact and FROM of Rt index finger. wound applied Bacitracin oint and covered w/ sterile dressing by nurse. Pt advised to f/u suture removal in 10-12 days and if any signs of infection develop to immediately return to the urgent care of PCP for further management and treatment. Pt understood and agreed and left the clinic ambulating A&Ox3. - Differential Dx - Laceration/Wound Differental Diagnoses: Abrasion, Avulsion, Cellulitis, Fracture, Laceration, Puncture Wound, Tendon Laceration - Diagnosis Provider Diagnosis: Laceration of right index finger Discharge ED - Sign-Out/Discharge Documenting (check all that apply): Patient Departure - D/C home All imaging exams completed and their final reports reviewed: No Studies - Discharge Plan Condition: Stable Disposition: HOME Prescriptions: Bacitracin OINTMENT* 1 applic TOPICAL BID #1 tube Patient Education Materials: Care For Your Stitches (ED), Finger Laceration (ED ) Referrals: Theron Bryson PA [Primary Care Provider] - 1 Week Additional Instructions: 1-Please apply topical Bacitracin oint antibiotic over the wound. Keep wound clean and dry 2- F/u suture removal in 10-12 days w/ your PCP or here at the urgent care. 3-Take Ibuprofen or Tylenol PO q6-8hrs prn for pain or swelling. 4- If you develop fever or redness around your finger please return to the Urgent care. pr f/u w/ your PCP for further evaluation and treatment - Billing Disposition and Condition Condition: STABLE Disposition: Home - Attestation Statements Provider Attestation: This patient was not seen by me. I was available for consult. Chart reviewed. ANTONIO
[2019-06-13 17:14] VITALS: BP 107/65
[2019-06-13] MEDS ORDERED: Lidocaine 1% MPF ** 5 ML VIAL INJ ONE (17:21)
== END 2019-06-13 18:44 | disposition home or self-care (01) ==
LOC: UCEAST 16:57
DX: S61.210A Laceration without foreign body of right index finger without damage to nail, initial encounter (principal); W26.0XXA Contact with knife, initial encounter; Y93.G1 Activity, food preparation and clean up; Y92.9 Unspecified place or not applicable
CPT/HCPCS: 12001; 99212; G0463